=== PATIENT | male | born 1940 | race Caucasian/White ===

== ENCOUNTER → 2016-07-04 | Outpatient (CLI) | payer MEDICARE, BC | LOC: MW.CHORTHO 08:00 | PROVIDERS: ATTEND Orthopaedic Surgery | DX: M17.12 Unilateral primary osteoarthritis, left knee (principal); M25.562 Pain in left knee | CPT/HCPCS: 20610; G0463; J1040 ==

== ENCOUNTER → 2016-08-13 | Outpatient (CLI) | payer MEDICARE, BC | LOC: MW.LAB 10:43 | PROVIDERS: ATTEND Internal Medicine | DX: N18.3 Chronic kidney disease, stage 3 (moderate) (principal); N28.1 Cyst of kidney, acquired; I70.1 Atherosclerosis of renal artery; I87.2 Venous insufficiency (chronic) (peripheral) | CPT/HCPCS: 36415; 82565; 84520; 92504; G0463 ==

== ENCOUNTER 2018-05-31 09:29 | Inpatient (IN) | payer MEDICARE, BC, OTHER ==
[2018-05-31] MEDS ORDERED: Sodium Chloride 0.9% 1,000 ML IV ONE (09:40)
[2018-05-31] MEDS ORDERED: Sodium Chloride 0.9% 2.5 ML Syringe FLUSH PRN (09:40)
[2018-05-31] MEDS ORDERED: Sodium Chloride 0.9% 10 ML Syringe FLUSH PRN (09:40)
--- NOTE | 2018-05-31 09:40 | EDM.PDOC ---
ED HPI GENERAL MEDICAL PROBLEM - General Chief Complaint: Abdominal Pain Stated Complaint: ABDOMINAL PAIN Time Seen by Provider: 05/31/18 09:40 Source of Information: Reports: Patient History Limitations: Reports: No Limitations - History of Present Illness INITIAL COMMENTS - FREE TEXT/NARRATIVE: History of present illness: Patient has had one week of left lower abdominal pain. He denies any fevers, vomiting but is nauseated and having diarrhea. He states he had similar pain in the past on the opposite side and was diagnosed with a kidney stone. Review of systems: As per history of present illness and below otherwise all systems reviewed and negative. Past medical history: As per history of present illness and as reviewed below otherwise noncontributory. Surgical history: As per history of present illness and as reviewed below otherwise noncontributory. Social history: No reported history of drug or alcohol abuse. Family history: As per history of present illness and as reviewed below otherwise noncontributory. Physical exam: General: Well developed, well nourished in NAD HEENT: Atraumatic, normocephalic, pupils reactive, negative for conjunctival pallor or scleral icterus, mucous membranes moist, throat clear, neck supple, nontender, trachea midline. Lungs: Clear to auscultation, breath sounds equal bilaterally, chest nontender. Heart: S1S2, regular, negative for clicks, rubs, or JVD. Abdomen: NABS, Soft, nondistended, tender left lower quadrant without rebound or guarding. Negative for masses or hepatosplenomegaly. Negative for costovertebral tenderness. Pelvis: Stable nontender. Genitourinary: Deferred. Rectal: Deferred. Extremities: Atraumatic, negative for cords or calf pain. Neurovascular unremarkable. Neuro: Awake, alert, oriented. Cranial nerves II through XII unremarkable. Cerebellum unremarkable. Motor and sensory unremarkable throughout. Exam nonfocal. Skin:warm and dry Diagnostics: CBC, chemistry, lipase, UA, and pelvis CT without contrast Therapeutics: IV hydration, Dilaudid, Zofran, Flagyl, aztreonam ED Course: Consulted Dr. Noel patient has diagnosis of diverticulitis without perforation or abscess with a high white count she recommend putting him into hospital to the hospitalist for IV antibiotics Impression: Diverticulitis, ureterolithiasis Prescriptions: Plan: Admit for IV antibiotics and pain control Definitive disposition and diagnosis as appropriate pending reevaluation and review of above. Left Lower Abdominal Pain Score (Numeric/FACES): 5 - Related Data Allergies Allergy/AdvReac Type Severity Reaction Status Date / Time Penicillins Allergy Unknown Cannot Verified 05/31/18 09:41 Remember amoxicillin Allergy Cannot Verified 05/31/18 09:41 Remember ciprofloxacin Allergy Cannot Verified 05/31/18 09:41 Remember clarithromycin Allergy Cannot Verified 05/31/18 09:41 Remember codeine Allergy Stomach Verified 05/31/18 09:41 Upset Home Meds: Home Meds Carvedilol [Coreg] 6.25 mg PO BID 12/19/13 [History] Diltiazem HCl [Diltiazem 24Hr ER] 180 mg PO DAILY 12/19/13 [History] Lisinopril [Prinivil] 10 mg PO DAILY 12/19/13 [History] atorvaSTATin [Lipitor] 20 mg PO BEDTIME 12/19/13 [History] Albuterol [Ventolin HFA] 2 puff INH Q4H PRN 05/31/18 [History] Cholecalciferol (Vitamin D3) [Vitamin D3] 1 cap PO DAILY 05/31/18 [History] Fluticasone/Salmeterol [Advair 250-50 Diskus] 1 puff INH BID 05/31/18 [History] Saw/Vit E/Sod Mechelle/Lyc/Beta/Pyg [Prostate Health Caplet] 2 tab PO DAILY 05/31/18 [History] Sodium Bicarbonate 650 mg PO DAILY 05/31/18 [History] hydroCHLOROthiazide [Hydrochlorothiazide] 25 mg PO DAILY 05/31/18 [History] ED ROS GENERAL - Review of Systems Review Of Systems: ROS reveals no pertinent complaints other than HPI. ED EXAM, GI/ABD - Physical Exam Exam: See Below (See history of present illness) Course - Vital Signs Last Recorded V/S: Last Vital Signs Temp 97.8 F 05/31/18 09:38 Pulse 70 05/31/18 12:08 Resp 18 05/31/18 12:08 BP 179/74 H 05/31/18 12:08 Pulse Ox 93 L 05/31/18 12:08 - Orders/Labs/Meds Orders: Active Orders 24 hr Category Date Time Status Patient Status [ADT] Stat ADT 05/31/18 12:19 Ordered UA W/MICROSCOPIC [URIN] Stat Lab 05/31/18 09:45 Ordered Aztreonam [Azactam] 1 gm Med 05/31/18 12:21 Ordered Sodium Chloride 0.9% [Normal Saline] 50 ml IV ONETIME Sodium Chloride 0.9% [Saline Flush] Med 05/31/18 09:40 Active 10 ml FLUSH ASDIRECTED PRN Sodium Chloride 0.9% [Saline Flush] Med 05/31/18 09:40 Active 2.5 ml FLUSH ASDIRECTED PRN metroNIDAZOLE/Normal Saline [Flagyl 500 MG in NS 100 ML Med 05/31/18 12:13 Active ] 500 mg Premix Bag 1 bag IV ONETIME Saline Lock Insert [OM.PC] Stat Oth 05/31/18 09:40 Ordered Medication Orders Metronidazole 500 mg/ Premix 100 mls @ 100 mls/hr IV ONETIME ONE Stop: 05/31/18 13:12 Aztreonam 1 gm/ Sodium (Chloride) 50 mls @ 100 mls/hr IV ONETIME ONE Stop: 05/31/18 12:50 Sodium Chloride (Saline Flush) 10 ml FLUSH ASDIRECTED PRN PRN Reason: Keep Vein Open Last Admin: 05/31/18 10:07 Dose: 10 ml Sodium Chloride (Saline Flush) 2.5 ml FLUSH ASDIRECTED PRN PRN Reason: Keep Vein Open Last Admin: 05/31/18 10:07 Dose: 2.5 ml Labs: Laboratory Tests 05/31/18 05/31/18 Range/Units 09:59 09:59 WBC 14.99 H (4.0-11.0) K/uL RBC 4.33 L (4.50-5.90) M/uL Hgb 13.7 (13.0-17.0) g/dL Hct 40.9 (38.0-50.0) % MCV 94.5 (80.0-98.0) fL MCH 31.6 (27.0-32.0) pg MCHC 33.5 (31.0-37.0) g/dL RDW Std Deviation 48.4 (28.0-62.0) fl RDW Coeff of Libby 14 (11.0-15.0) % Plt Count 282 (150-400) K/uL MPV 10.70 (7.40-12.00) fL Neut % (Auto) 86.0 H (48.0-80.0) % Lymph % (Auto) 4.2 L (16.0-40.0) % [place] % (Auto) 9.4 (0.0-15.0) % Eos % (Auto) 0.2 (0.0-7.0) % Baso % (Auto) 0.2 (0.0-1.5) % Neut # (Auto) 12.9 H (1.4-5.7) K/uL Lymph # (Auto) 0.6 (0.6-2.4) K/uL [place] # (Auto) 1.4 H (0.0-0.8) K/uL Eos # (Auto) 0.0 (0.0-0.7) K/uL Baso # (Auto) 0.0 (0.0-0.1) K/uL Nucleated RBC % 0.0 /100WBC Nucleated RBCs # 0 K/uL Sodium 141 (136-148) mmol/L Potassium 4.1 (3.5-5.1) mmol/L Chloride 108 H (98-107) mmol/L Carbon Dioxide 22.0 (21.0-32.0) mmol/L BUN 40 H (7.0-18.0) mg/dL Creatinine 2.6 H (0.8-1.3) mg/dL Est Cr Clr Drug Dosing 24.13 mL/min Estimated GFR (MDRD) 23.9 ml/min Glucose 146 H (74-106) mg/dL Calcium 9.8 (8.5-10.1) mg/dL Total Bilirubin 0.6 (0.2-1.0) mg/dL AST 17 (15-37) IU/L ALT 23 (14-63) IU/L Alkaline Phosphatase 90 (46-116) U/L Total Protein 7.9 (6.4-8.2) g/dL Albumin 4.0 (3.4-5.0) g/dL Globulin 3.9 (2.6-4.0) g/dL Albumin/Globulin Ratio 1.0 (0.9-1.6) Lipase 322 (73-393) U/L Meds: Medications Generic Name Dose Route Start Last Admin Trade Name Freq PRN Reason Stop Dose Admin Metronidazole 500 mg/ Premix 100 mls @ 100 mls/hr 05/31/18 12:13 IV 05/31/18 13:12 ONETIME ONE Aztreonam 1 gm/ Sodium 50 mls @ 100 mls/hr 05/31/18 12:21 Chloride IV 05/31/18 12:50 ONETIME ONE Sodium Chloride 10 ml 05/31/18 09:40 05/31/18 10:07 Saline Flush FLUSH 10 ml ASDIRECTED PRN Administration Keep Vein Open Sodium Chloride 2.5 ml 05/31/18 09:40 05/31/18 10:07 Saline Flush FLUSH 2.5 ml ASDIRECTED PRN Administration Keep Vein Open Discontinued Medications Generic Name Dose Route Start Last Admin Trade Name Freq PRN Reason Stop Dose Admin Hydromorphone HCl 0.5 mg 05/31/18 09:56 05/31/18 10:06 Dilaudid IVPUSH 05/31/18 09:57 0.5 mg ONETIME ONE Administration Hydromorphone HCl 0.5 mg 05/31/18 11:53 05/31/18 12:04 Dilaudid IVPUSH 05/31/18 11:54 0.5 mg ONETIME ONE Administration Sodium Chloride 1,000 mls @ 999 mls/hr 05/31/18 09:40 05/31/18 10:02 Normal Saline IV 05/31/18 10:40 999 mls/hr .Bolus ONE Administration Ondansetron HCl 4 mg 05/31/18 09:56 05/31/18 10:07 Zofran IVPUSH 05/31/18 09:57 4 mg ONETIME ONE Administration Departure - Departure Time of Disposition: 12:24 Disposition: Admitted As Inpatient 64 Condition: Good Clinical Impression: Diverticulitis, Ureterolithiasis - Discharge Information *PRESCRIPTION DRUG MONITORING PROGRAM REVIEWED*: No *COPY OF PRESCRIPTION DRUG MONITORING REPORT IN PATIENT ALEX: No Referrals: Tomy Huggins MD [Primary Care Provider] - Forms: ED Department Discharge - My Orders Last 24 Hours: My Active Orders 05/31/18 09:40 Sodium Chloride 0.9% [Saline Flush] 10 ml FLUSH ASDIRECTED PRN Sodium Chloride 0.9% [Saline Flush] 2.5 ml FLUSH ASDIRECTED PRN Saline Lock Insert [OM.PC] Stat 05/31/18 09:45 UA W/MICROSCOPIC [URIN] Stat 05/31/18 12:13 metroNIDAZOLE/Normal Saline [Flagyl 500 MG in NS 100 ML] 500 mg Premix Bag 1 bag IV ONETIME 05/31/18 12:19 Patient Status [ADT] Stat 05/31/18 12:21 Aztreonam [Azactam] 1 gm Sodium Chloride 0.9% [Normal Saline] 50 ml IV ONETIME - Assessment/Plan Last 24 Hours: My Active Orders 05/31/18 09:40 Sodium Chloride 0.9% [Saline Flush] 10 ml FLUSH ASDIRECTED PRN Sodium Chloride 0.9% [Saline Flush] 2.5 ml FLUSH ASDIRECTED PRN Saline Lock Insert [OM.PC] Stat 05/31/18 09:45 UA W/MICROSCOPIC [URIN] Stat 05/31/18 12:13 metroNIDAZOLE/Normal Saline [Flagyl 500 MG in NS 100 ML] 500 mg Premix Bag 1 bag IV ONETIME 05/31/18 12:19 Patient Status [ADT] Stat 05/31/18 12:21 Aztreonam [Azactam] 1 gm Sodium Chloride 0.9% [Normal Saline] 50 ml IV ONETIME
[2018-05-31] MEDS ORDERED: HYDROmorphone 1 MG/ML Syringe IVPUSH ONE ×2 (09:56→11:53)
[2018-05-31] MEDS ORDERED: Ondansetron 4 MG/2 ML SDV IVPUSH ONE (09:56)
--- NOTE | 2018-05-31 12:10 | CT ---
INDICATION: Left lower quadrant pain, history of renal stones TECHNIQUE: CT abdomen and pelvis without contrast. COMPARISON: CT abdomen and pelvis 10/17/2017, 10/25/2016 and 07/11/2014 FINDINGS: Emphysematous changes are present within both lungs. There is atelectasis or scarring within the right middle lobe and lingula. Evaluation of the abdominal viscera is limited due to lack of IV contrast. The gallbladder is surgically absent. Punctate calcifications are seen within the spleen, likely sequelae of prior granulomatous disease. The unopacified liver is unremarkable. Negative for intrahepatic or extrahepatic biliary dilatation. The pancreas is unremarkable. There are stable bilateral adrenal nodules. The largest of which is on the left and measures 2.5 cm There are multiple bilateral hypo and hyper attenuating renal lesions, some of which measure simple cysts, others are indeterminate. The majority of these appear similar to prior exam, however there is hyper attenuating lesion off the mid pole of the right kidney which measures 1.6 cm, previously 1.1 cm in October 2016. This is indeterminate. There is mild left hydronephrosis and hydroureter. There is a obstructing stone just proximal to the left ureterovesical junction measuring 0.4 cm. No additional punctate calcifications are seen within either kidney. A 0.5 cm stone is seen within the posterior aspect of the bladder. The prostate is enlarged measuring 5.0 x 7.2 cm. Calcifications are seen within the prostate. There are multiple colonic diverticuli within the rectosigmoid colon. There is mild surrounding inflammatory changes suggesting acute diverticulitis. There are a few mildly prominent fluid-filled loops of small bowel without a transition point, which may represent an ileus. Negative for intraperitoneal free air or fluid. No drainable fluid collection is visualized. There is a small fat containing periumbilical hernia. Small fat containing inguinal hernias are present. There are multilevel degenerative changes of the spine, worse at the L3-L4 and L4-L5 levels. IMPRESSION: 1. Mild left hydronephrosis and hydroureter with a 0.4 cm obstructing stone in the distal ureter just proximal to the ureterovesical junction. Additional 0.5 cm stone within the bladder. 2. Acute colonic diverticulitis of the sigmoid colon without a drainable fluid collection. If not recently performed recommend follow-up colonoscopy after treatment to ensure no underlying malignancy is present. 3. Mildly prominent fluid-filled loops of small bowel likely represent an ileus. Otherwise no evidence of bowel obstruction. 4. Multiple bilateral renal lesions are likely simple and complicated cysts, however there is a hyper dense lesion within the midpole of the right kidney, measuring 1.6 cm which has increased in size since October 2016 when it previously measured 1.1 cm. This is indeterminate. 5. Emphysema within the bilateral lung bases. Dictated by Candelaria Brian MD @ 05/31/2018 12:08:47 PM Please note that all CT scans at this facility use dose modulation, iterative reconstruction, and/or weight-based dosing when appropriate to reduce radiation dose to as low as reasonably achievable. Dictated by: Candelaria Brian MD @ 05/31/2018 12:09:27 (Electronically Signed)
[2018-05-31] MEDS ORDERED: metroNIDAZOLE/Normal Saline 500 MG in Premix Bag 1 BAG IV ONE (12:13)
[2018-05-31] MEDS ORDERED: Albuterol 8 GM Inhaler INH PRN (13:36)
[2018-05-31] MEDS ORDERED: Morphine 2 MG/ML Syringe IVPUSH PRN (13:38)
--- NOTE | 2018-05-31 13:42 | PCM.HP ---
H&P History of Present Illness - General Date of Service: 05/31/18 Admit Problem/Dx: Admission Diagnosis/Problem Admission Diagnosis/Problem Diverticulitis Source of Information: Patient History Limitations: Reports: No Limitations - History of Present Illness Initial Comments - Free Text/Narative: The patient is an 78-year-old gentleman who had presented to the emergency department out of concern for left-sided abdominal pain. The patient says that he has been having pain in his left lower abdomen for approximately 6 days. The patient says that the pain was similar to a kidney stone that he had on the right side and he thought that this was in fact another kidney stone. The pain did not go away and in fact got worse resulting in his presentation. 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 The patient has denied any fever but, has had chills. The patient also has had no specific aggravating or relieving factor and he has described the pain as cramping, sharp and stabbing and comes and goes. Onset of Symptoms: Reports: Gradual Duration of Symptoms: Reports: Day(s): Location: Reports: Abdomen Quality: Reports: Sharp, Stabbing, Throbbing Severity: Moderate Improves with: Reports: Medication, Rest Worsens with: Reports: Eating, Movement Associated Symptoms: Reports: No Other Symptoms Left Lower Abdominal Pain Score (Numeric/FACES): 5 - Related Data Allergies/Adverse Reactions: Allergies Allergy/AdvReac Type Severity Reaction Status Date / Time Penicillins Allergy Unknown Cannot Verified 05/31/18 09:41 Remember amoxicillin Allergy Cannot Verified 05/31/18 09:41 Remember ciprofloxacin Allergy Cannot Verified 05/31/18 09:41 Remember clarithromycin Allergy Cannot Verified 05/31/18 09:41 Remember codeine Allergy Stomach Verified 05/31/18 09:41 Upset Home Medications: Home Meds Carvedilol [Coreg] 6.25 mg PO BID 12/19/13 [History] Diltiazem HCl [Diltiazem 24Hr ER] 180 mg PO DAILY 12/19/13 [History] Lisinopril [Prinivil] 10 mg PO DAILY 12/19/13 [History] atorvaSTATin [Lipitor] 20 mg PO BEDTIME 12/19/13 [History] Albuterol [Ventolin HFA] 2 puff INH Q4H PRN 05/31/18 [History] Cholecalciferol (Vitamin D3) [Vitamin D3] 1 cap PO DAILY 05/31/18 [History] Fluticasone/Salmeterol [Advair 250-50 Diskus] 1 puff INH BID 05/31/18 [History] Methylsulfonylmethane [MSM] 1,200 mg PO DAILY 05/31/18 [History] Saw/Vit E/Sod Mechelle/Lyc/Beta/Pyg [Prostate Health Caplet] 2 tab PO DAILY 05/31/18 [History] Sodium Bicarbonate 650 mg PO BID 05/31/18 [History] hydroCHLOROthiazide [Hydrochlorothiazide] 25 mg PO DAILY 05/31/18 [History] Past Medical History HEENT History: Reports: None Cardiovascular History: Reports: Afib, High Cholesterol, Hypertension Respiratory History: Reports: COPD Gastrointestinal History: Reports: Chronic Diarrhea, Other (See Below) ( Diverticulitis) Genitourinary History: Reports: Renal Calculus, Renal Disease Musculoskeletal History: Reports: None Neurological History: Reports: Headaches, Chronic Psychiatric History: Reports: None Endocrine/Metabolic History: Reports: None Hematologic History: Reports: None Immunologic History: Reports: None Oncologic (Cancer) History: Reports: None - Infectious Disease History Infectious Disease History: Reports: Chicken Pox, Measles, Mumps - Past Surgical History GI Surgical History: Reports: Appendectomy, Cholecystectomy Social & Family History - Family History Family Medical History: Noncontributory - Tobacco Use Smoking Status *Q: Former Smoker Used Tobacco, but Quit: Yes Month/Year Tobacco Last Used: 10 years - Recreational Drug Use Recreational Drug Use: No - Living Situation & Occupation Living situation: Reports: , with Spouse Occupation: Retired H&P Review of Systems - Review of Systems: Review Of Systems: See Below General: Reports: Chills, Malaise, Weakness HEENT: Reports: Ear Pain, Headaches Pulmonary: Reports: No Symptoms Cardiovascular: Reports: No Symptoms Gastrointestinal: Reports: Abdominal Pain, Diarrhea (Chronic) Genitourinary: Reports: No Symptoms Musculoskeletal: Reports: No Symptoms Skin: Reports: No Symptoms Psychiatric: Reports: No Symptoms Neurological: Reports: No Symptoms Hematologic/Lymphatic: Reports: No Symptoms Immunologic: Reports: No Symptoms Exam - Exam Exam: See Below - Vital Signs Vital Signs: Last Vital Signs Temp 36.6 C 05/31/18 09:38 Pulse 70 05/31/18 12:08 Resp 18 05/31/18 12:08 BP 179/74 H 05/31/18 12:08 Pulse Ox 93 L 05/31/18 12:08 Weight: 110.4 kg - Exam Quality Assessment: No: Supplemental Oxygen General: Alert, Oriented, Cooperative, Mild Distress HEENT: Conjunctiva Clear, EACs Clear, Mucosa Moist & Farrell, Nares Patent, Pupils Equal, Pupils Reactive. No: Hearing Intact Neck: Supple, Trachea Midline Lungs: Clear to Auscultation, Normal Respiratory Effort Cardiovascular: Regular Rate, Regular Rhythm GI/Abdominal Exam: Normal Bowel Sounds, Soft, No Distention, Tender (Left lower quadrant). No: Guarding, Rigid, Rebound (Male) Exam: Deferred Rectal (Males) Exam: Deferred Back Exam: Normal Inspection, Full Range of Motion Extremities: Normal Inspection, No Pedal Edema Skin: Warm, Dry, Intact Neurological: Cranial Nerves Intact Neuro Extensive - Mental Status: Alert, Oriented x3, Normal Mood/Affect - Patient Data Lab Results Last 24 hrs: Laboratory Results - last 24 hr 05/31/18 05/31/18 Range/Units 09:59 09:59 WBC 14.99 H (4.0-11.0) K/uL RBC 4.33 L (4.50-5.90) M/uL Hgb 13.7 (13.0-17.0) g/dL Hct 40.9 (38.0-50.0) % MCV 94.5 (80.0-98.0) fL MCH 31.6 (27.0-32.0) pg MCHC 33.5 (31.0-37.0) g/dL RDW Std Deviation 48.4 (28.0-62.0) fl RDW Coeff of Libby 14 (11.0-15.0) % Plt Count 282 (150-400) K/uL MPV 10.70 (7.40-12.00) fL Neut % (Auto) 86.0 H (48.0-80.0) % Lymph % (Auto) 4.2 L (16.0-40.0) % [place] % (Auto) 9.4 (0.0-15.0) % Eos % (Auto) 0.2 (0.0-7.0) % Baso % (Auto) 0.2 (0.0-1.5) % Neut # (Auto) 12.9 H (1.4-5.7) K/uL Lymph # (Auto) 0.6 (0.6-2.4) K/uL [place] # (Auto) 1.4 H (0.0-0.8) K/uL Eos # (Auto) 0.0 (0.0-0.7) K/uL Baso # (Auto) 0.0 (0.0-0.1) K/uL Nucleated RBC % 0.0 /100WBC Nucleated RBCs # 0 K/uL Sodium 141 (136-148) mmol/L Potassium 4.1 (3.5-5.1) mmol/L Chloride 108 H (98-107) mmol/L Carbon Dioxide 22.0 (21.0-32.0) mmol/L BUN 40 H (7.0-18.0) mg/dL Creatinine 2.6 H (0.8-1.3) mg/dL Est Cr Clr Drug Dosing 24.13 mL/min Estimated GFR (MDRD) 23.9 ml/min Glucose 146 H (74-106) mg/dL Calcium 9.8 (8.5-10.1) mg/dL Total Bilirubin 0.6 (0.2-1.0) mg/dL AST 17 (15-37) IU/L ALT 23 (14-63) IU/L Alkaline Phosphatase 90 (46-116) U/L Total Protein 7.9 (6.4-8.2) g/dL Albumin 4.0 (3.4-5.0) g/dL Globulin 3.9 (2.6-4.0) g/dL Albumin/Globulin Ratio 1.0 (0.9-1.6) Lipase 322 (73-393) U/L Result Diagrams: 05/31/18 09:59 05/31/18 09:59 - Problem List (1) Diverticulitis SNOMED Code(s): 045906753 ICD Code: K57.92 - DVTRCLI OF INTEST, PART UNSP, W/O PERF OR ABSCESS W/O BLEED Status: Acute Priority: High Current Visit: Yes (2) Abdominal pain SNOMED Code(s): 30125913 ICD Code: R10.9 - UNSPECIFIED ABDOMINAL PAIN Status: Acute Priority: High Current Visit: Yes (3) Renal impairment SNOMED Code(s): 026935949 ICD Code: N28.9 - DISORDER OF KIDNEY AND URETER, UNSPECIFIED Status: Chronic Priority: High Current Visit: Yes (4) COPD, Moderate chronic obstructive pulmonary disease SNOMED Code(s): 722344869 ICD Code: J44.9 - CHRONIC OBSTRUCTIVE PULMONARY DISEASE, UNSPECIFIED Status : Chronic Priority: High Current Visit: Yes (5) Hypertensive heart disease SNOMED Code(s): 09253398 ICD Code: I11.9 - HYPERTENSIVE HEART DISEASE WITHOUT HEART FAILURE Status: Chronic Priority: Medium Current Visit: Yes Problem List Initiated/Reviewed/Updated: Yes Orders Last 24hrs: Active Orders 24 hr Category Date Time Status Patient Status [ADT] Stat ADT 05/31/18 12:19 Active UA W/MICROSCOPIC [URIN] Stat Lab 05/31/18 09:45 Ordered Albuterol [Ventolin HFA] Med 05/31/18 13:36 Ordered 2 puff INH Q4H PRN Carvedilol [Coreg] Med 05/31/18 21:00 Ordered 6.25 mg PO BID Diltiazem HCl [Diltiazem 24Hr ER] Med 06/01/18 09:00 Ordered 180 mg PO DAILY Fluticasone/Salmeterol [Advair Diskus 250-50] Med 05/31/18 21:00 Ordered 1 puff INH BID Lisinopril [Prinivil] Med 06/01/18 09:00 Ordered 10 mg PO DAILY Sodium Chloride 0.9% [Saline Flush] Med 05/31/18 09:40 Active 10 ml FLUSH ASDIRECTED PRN Sodium Chloride 0.9% [Saline Flush] Med 05/31/18 09:40 Active 2.5 ml FLUSH ASDIRECTED PRN atorvaSTATin [Lipitor] Med 05/31/18 21:00 Ordered 20 mg PO BEDTIME hydroCHLOROthiazide Med 06/01/18 09:00 Ordered 25 mg PO DAILY Saline Lock Insert [OM.PC] Stat Oth 05/31/18 09:40 Ordered Medication Orders Albuterol (Ventolin Hfa) 8 gm INH Q4H PRN PRN Reason: sob Atorvastatin Calcium (Lipitor) 20 mg PO BEDTIME GABI Carvedilol (Coreg) 6.25 mg PO BID GABI Diltiazem HCl (Cardizem Cd) 180 mg PO DAILY GABI Hydrochlorothiazide (Hydrochlorothiazide) 25 mg PO DAILY GABI Lisinopril (Prinivil) 10 mg PO DAILY GABI Fluticasone/Salmeterol (Advair Diskus 250-50) 1 puff INH BID GABI Sodium Chloride (Saline Flush) 10 ml FLUSH ASDIRECTED PRN PRN Reason: Keep Vein Open Last Admin: 05/31/18 10:07 Dose: 10 ml Sodium Chloride (Saline Flush) 2.5 ml FLUSH ASDIRECTED PRN PRN Reason: Keep Vein Open Last Admin: 05/31/18 10:07 Dose: 2.5 ml Assessment/Plan Comment:: The patient is an 78-year-old gentleman who has been admitted as an inpatient due to diverticulitis. CT scan of the abdomen did show acute colonic diverticulitis as the sigmoid colon without a drainable fluid collection. The patient also has a history of emphysema and he'll be kept on oxygen if necessary to keep his saturations above 90%. The patient will be kept nothing by mouth for now. He'll also be kept on IV fluids at 100 mL per hour of normal saline the patient will have his pain controlled with the use of Dilaudid. I have ordered repeat laboratory studies for the morning. I've advised patient that if everything improves as cleared he would likely be appropriate for discharge in 1-2 days. Also, surgeon consulting senior practice director Dr. Amanda Galicia had been contacted with regards to this patient. She will see patient as necessary. The patient was also noted on CT scan to have a possible ileus and as a result of this is been recommended to ambulate.
[2018-05-31] MEDS ORDERED: Enoxaparin 30 MG/0.3 ML Syringe SUBCUT SCH (13:45)
[2018-05-31] MEDS: Sodium Chloride 0.9% 1,000 ML IV SCH (14:15)
[2018-05-31] MEDS: HYDROmorphone 1 MG/ML Syringe IVPUSH PRN ×2 (14:30→23:28)
[2018-05-31] MEDS: atorvaSTATin 20 MG Tab PO SCH (20:17)
[2018-05-31] MEDS: Carvedilol 6.25 MG Tab PO SCH (20:17)
[2018-05-31] MEDS: oxyCODONE 5 MG Tab PO PRN (20:19)
[2018-05-31] MEDS: Fluticasone/Salmeterol 250-50 MCG Inhalation Powder 14/Diskus INH SCH (22:25)
[2018-05-31] MEDS: metroNIDAZOLE/Normal Saline 500 MG in Premix Bag 1 BAG IV SCH (22:26)
[2018-06-01] MEDS: Sodium Chloride 0.9% 1,000 ML IV SCH ×3 (01:30→21:39)
[2018-06-01] MEDS: metroNIDAZOLE/Normal Saline 500 MG in Premix Bag 1 BAG IV SCH (04:57)
[2018-06-01] MEDS: HYDROmorphone 1 MG/ML Syringe IVPUSH PRN ×3 (07:19→22:24)
[2018-06-01] MEDS: Carvedilol 6.25 MG Tab PO SCH ×2 (08:28→21:16)
[2018-06-01] MEDS: Diltiazem 180 MG Cap.CD PO SCH (08:28)
[2018-06-01] MEDS ORDERED: Lisinopril 10 MG Tab PO SCH (09:00)
[2018-06-01] MEDS ORDERED: Hydrochlorothiazide 25 MG Tab PO SCH (09:00)
[2018-06-01] MEDS ORDERED: Ertapenem 1 GM in Sodium Chloride 0.9% 50 ML IV SCH (09:45)
[2018-06-01] MEDS: Tamsulosin 0.4 MG Cap.ER PO SCH (09:49)
[2018-06-01] MEDS: Fluticasone/Salmeterol 250-50 MCG Inhalation Powder 14/Diskus INH SCH ×2 (09:58→21:12)
[2018-06-01] MEDS: oxyCODONE 5 MG Tab PO PRN (13:16)
[2018-06-01] MEDS: Heparin Sodium 5,000 Units/ML Vial SUBCUT SCH ×2 (13:18→21:16)
--- NOTE | 2018-06-01 13:29 | PCM.PN ---
- General Info Date of Service: 06/01/18 Admission Dx/Problem (Free Text): Admission Diagnosis/Problem Admission Diagnosis/Problem Diverticulitis, renal calculus Subjective Update: Continues to have pain intermittently to LLQ. Not passing gas and No BMs. No chest pain. SOB is at baseline with hx COPD Functional Status: Reports: Pain Controlled, Ambulating, Urinating. Denies: Tolerating Diet - Review of Systems General: Reports: No Symptoms. Denies: Weakness, Fatigue HEENT: Denies: Headaches, Sore Throat Pulmonary: Reports: Shortness of Breath (at baseline.). Denies: Cough, Sputum Cardiovascular: Reports: No Symptoms. Denies: Chest Pain, Edema Gastrointestinal: Reports: Abdominal Pain (LLQ intermittently, sharp shooting). Denies: Diarrhea, Flatus, Nausea, Vomiting Genitourinary: Reports: No Symptoms. Denies: Dysuria, Frequency, Burning, Flank Pain Musculoskeletal: Reports: No Symptoms Skin: Reports: No Symptoms Neurological: Reports: No Symptoms Psychiatric: Reports: No Symptoms - Patient Data Vitals - Most Recent: Last Vital Signs Temp 98.9 F 06/01/18 11:58 Pulse 67 06/01/18 11:58 Resp 16 06/01/18 11:58 BP 104/57 L 06/01/18 11:58 Pulse Ox 92 L 06/01/18 11:58 Weight - Most Recent: 110.4 kg I&O - Last 24 Hours: Intake & Output 05/31/18 06/01/18 06/01/18 22:59 06:59 14:59 Intake Total 0 1331 Output Total 0 50 Balance 0 1281 Lab Results Last 24 Hours: Laboratory Results - last 24 hr 05/31/18 06/01/18 06/01/18 Range/Units 19:05 06:06 06:06 WBC 12.64 H (4.0-11.0) K/uL RBC 3.74 L (4.50-5.90) M/uL Hgb 12.0 L (13.0-17.0) g/dL Hct 37.0 L (38.0-50.0) % MCV 98.9 H (80.0-98.0) fL MCH 32.1 H (27.0-32.0) pg MCHC 32.4 (31.0-37.0) g/dL RDW Std Deviation 52.4 (28.0-62.0) fl RDW Coeff of Libby 15 (11.0-15.0) % Plt Count 230 (150-400) K/uL MPV 10.80 (7.40-12.00) fL Add Manual Diff YES Neutrophils % (Manual) 77 (48.0-80.0) % Band Neutrophils % 1 % Lymphocytes % (Manual) 4 L (16.0-40.0) % Monocytes % (Manual) 16 H (0.0-15.0) % Eosinophils % (Manual) 2 (0.0-7.0) % Nucleated RBC % 0.0 /100WBC Absolute Seg Neuts 9.7 H (1.4-5.7) Band Neutrophils # 0.1 Lymphocytes # (Manual) 0.5 L (0.6-2.4) Monocytes # (Manual) 2.0 H (0.0-0.8) Eosinophils # (Manual) 0.3 (0.0-0.7) Nucleated RBCs # [employer] INFORMATION [employer]ER Sodium 142 (136-148) mmol/L Potassium 4.3 (3.5-5.1) mmol/L Chloride 109 H (98-107) mmol/L Carbon Dioxide 22.8 (21.0-32.0) mmol/L BUN 43 H (7.0-18.0) mg/dL Creatinine 3.4 H (0.8-1.3) mg/dL Est Cr Clr Drug Dosing 18.46 mL/min Estimated GFR (MDRD) 17.5 ml/min Glucose 130 H (74-106) mg/dL Calcium 8.5 (8.5-10.1) mg/dL Total Bilirubin 0.4 (0.2-1.0) mg/dL AST 15 (15-37) IU/L ALT 19 (14-63) IU/L Alkaline Phosphatase 73 (46-116) U/L Total Protein 6.6 (6.4-8.2) g/dL Albumin 3.0 L (3.4-5.0) g/dL Globulin 3.6 (2.6-4.0) g/dL Albumin/Globulin Ratio 0.8 L (0.9-1.6) Urine Color YELLOW Urine Appearance HAZY Urine pH 5.5 (5.0-8.0) Ur Specific [place] 1.025 (1.001-1.035) Urine Protein TRACE H (NEGATIVE) mg/dL Urine Glucose (UA) NEGATIVE (NEGATIVE) mg/dL Urine Ketones NEGATIVE (NEGATIVE) mg/dL Urine Occult Blood LARGE H (NEGATIVE) Urine Nitrite NEGATIVE (NEGATIVE) Urine Bilirubin NEGATIVE (NEGATIVE) Urine Urobilinogen 0.2 (<2.0) EU/dL Ur Leukocyte Esterase NEGATIVE (NEGATIVE) Urine RBC 45-50 (0-2/HPF) Urine WBC 1-3 (0-5/HPF) Ur Epithelial Cells FEW (NONE-FEW) Urine Bacteria FEW (NEGATIVE) Med Orders - Current: Current Medications Acetaminophen (Tylenol) 650 mg PO Q4H PRN PRN Reason: Pain (Mild 1-3)/fever Albuterol (Ventolin Hfa) 8 gm INH Q4H PRN PRN Reason: sob Albuterol/Ipratropium (Duoneb 3.0-0.5 Mg/3 Ml) 3 ml NEB Q4HRRT [facility] Atorvastatin Calcium (Lipitor) 20 mg PO BEDTIME [facility] Last Admin: 05/31/18 20:17 Dose: 20 mg Carvedilol (Coreg) 6.25 mg PO BID [facility] Last Admin: 06/01/18 08:28 Dose: 6.25 mg Diltiazem HCl (Cardizem Cd) 180 mg PO DAILY [facility] Last Admin: 06/01/18 08:28 Dose: 180 mg Heparin Sodium (Porcine) (Heparin Sodium) 5,000 units SUBCUT Q8H [facility] Hydromorphone HCl (Dilaudid) 1 mg IVPUSH Q3H PRN PRN Reason: Pain (severe 7-10) Last Admin: 06/01/18 10:42 Dose: 1 mg Ertapenem 1 gm/ Sodium (Chloride) 50 mls @ 100 mls/hr IV Q24H [facility] Sodium Chloride (Normal Saline) 1,000 mls @ 125 mls/hr IV ASDIRECTED [facility] Last Admin: 06/01/18 13:09 Dose: 125 mls/hr Ondansetron HCl (Zofran Odt) 4 mg PO Q4H PRN PRN Reason: nausea, able to take PO Oxycodone HCl (Oxycodone) 5 mg PO Q4H PRN PRN Reason: Pain (moderate 4-6) Last Admin: 05/31/18 20:19 Dose: 5 mg Fluticasone/Salmeterol (Advair Diskus 250-50) 1 puff INH BID [facility] Last Admin: 06/01/18 09:58 Dose: 1 puff Sodium Chloride (Saline Flush) 10 ml FLUSH ASDIRECTED PRN PRN Reason: Keep Vein Open Last Admin: 05/31/18 10:07 Dose: 10 ml Sodium Chloride (Saline Flush) 2.5 ml FLUSH ASDIRECTED PRN PRN Reason: Keep Vein Open Last Admin: 05/31/18 10:07 Dose: 2.5 ml Tamsulosin HCl (Flomax) 0.4 mg PO PCBREAKFAST [facility] Last Admin: 06/01/18 09:49 Dose: 0.4 mg Temazepam (Restoril) 15 mg PO BEDTIME PRN PRN Reason: Sleep Discontinued Medications Enoxaparin Sodium (Lovenox) 30 mg SUBCUT Q24H [facility] Last Admin: 05/31/18 14:30 Dose: 30 mg Hydrochlorothiazide (Hydrochlorothiazide) 25 mg PO DAILY [facility] Last Admin: 06/01/18 08:28 Dose: 25 mg Hydromorphone HCl (Dilaudid) 0.5 mg IVPUSH ONETIME ONE Stop: 05/31/18 09:57 Last Admin: 05/31/18 10:06 Dose: 0.5 mg Hydromorphone HCl (Dilaudid) 0.5 mg IVPUSH ONETIME ONE Stop: 05/31/18 11:54 Last Admin: 05/31/18 12:04 Dose: 0.5 mg Sodium Chloride (Normal Saline) 1,000 mls @ 999 mls/hr IV .Bolus ONE Stop: 05/31/18 10:40 Last Admin: 05/31/18 10:02 Dose: 999 mls/hr Metronidazole 500 mg/ Premix 100 mls @ 100 mls/hr IV ONETIME ONE Stop: 05/31/18 13:12 Last Admin: 05/31/18 12:26 Dose: 100 mls/hr Aztreonam 1 gm/ Sodium (Chloride) 50 mls @ 100 mls/hr IV ONETIME ONE Stop: 05/31/18 12:50 Last Admin: 05/31/18 14:04 Dose: Not Given Sodium Chloride (Normal Saline) 1,000 mls @ 100 mls/hr IV ASDIRECTED [facility] Last Admin: 06/01/18 01:30 Dose: 100 mls/hr Aztreonam 1 gm/ Sodium (Chloride) 50 mls @ 100 mls/hr IV ONETIME ONE Stop: 05/31/18 14:29 Last Admin: 05/31/18 14:16 Dose: 100 mls/hr Aztreonam 2 gm/ Sodium (Chloride) 50 mls @ 100 mls/hr IV Q8HR [facility] Last Admin: 06/01/18 06:01 Dose: 100 mls/hr Metronidazole 500 mg/ Premix 100 mls @ 100 mls/hr IV Q6H [facility] Last Admin: 06/01/18 04:57 Dose: 100 mls/hr Aztreonam 1 gm/ Sodium (Chloride) 50 mls @ 100 mls/hr IV Q8HR [facility] Aztreonam 1 gm/ Sodium (Chloride) 50 mls @ 100 mls/hr IV Q8HR [facility] Ertapenem 1 gm/ Sodium (Chloride) 50 mls @ 100 mls/hr IV Q24H [facility] Last Admin: 06/01/18 10:21 Dose: Not Given Lisinopril (Prinivil) 10 mg PO DAILY [facility] Last Admin: 06/01/18 08:27 Dose: 10 mg Morphine Sulfate (Morphine) 2 mg IVPUSH Q2H PRN PRN Reason: Pain (severe 7-10) Stop: 06/01/18 13:40 Last Admin: 05/31/18 14:11 Dose: 2 mg Ondansetron HCl (Zofran) 4 mg IVPUSH ONETIME ONE Stop: 05/31/18 09:57 Last Admin: 05/31/18 10:07 Dose: 4 mg Tamsulosin HCl (Flomax) 0.4 mg PO PCBREAKFAST [facility] - Exam Quality Assessment: Supplemental Oxygen General: Alert, Oriented, Cooperative Neck: Supple Lungs: Normal Respiratory Effort, Wheezing (scant throughout) Cardiovascular: Regular Rate, Regular Rhythm GI/Abdominal Exam: Normal Bowel Sounds, Soft, Tender (LLQ) Back Exam: Normal Inspection Extremities: Normal Inspection, Normal Range of Motion, Non-Tender Neurological: No New Focal Deficit Psy/Mental Status: Alert, Normal Affect, Normal Mood - Problem List & Annotations (1) Abdominal pain SNOMED Code(s): 58488834 Code(s): R10.9 - UNSPECIFIED ABDOMINAL PAIN Status: Acute Priority: High Current Visit: Yes (2) Diverticulitis SNOMED Code(s): 364873350 Code(s): K57.92 - DVTRCLI OF INTEST, PART UNSP, W/O PERF OR ABSCESS W/O BLEED Status: Acute Priority: High Current Visit: Yes (3) Renal calculus or stone SNOMED Code(s): 44275325 Code(s): N20.0 - CALCULUS OF KIDNEY Status: Acute Current Visit: Yes (4) STEPHY (acute kidney injury) SNOMED Code(s): 38132453 Code(s): N17.9 - ACUTE KIDNEY FAILURE, UNSPECIFIED Status: Acute Current Visit: Yes (5) HTN (hypertension) SNOMED Code(s): 28306961 Code(s): I10 - ESSENTIAL (PRIMARY) HYPERTENSION Status: Chronic Current Visit: Yes Qualifiers: Hypertension type: essential hypertension Qualified Code(s): I10 - Essential (primary) hypertension (6) COPD, Moderate chronic obstructive pulmonary disease SNOMED Code(s): 649842858 Code(s): J44.9 - CHRONIC OBSTRUCTIVE PULMONARY DISEASE, UNSPECIFIED Status : Chronic Priority: High Current Visit: Yes (7) Afib SNOMED Code(s): 72209457 Code(s): I48.91 - UNSPECIFIED ATRIAL FIBRILLATION Status: Chronic Current Visit: Yes Qualifiers: Atrial fibrillation type: unspecified Qualified Code(s): I48.91 - Unspecified atrial fibrillation - Problem List Review Problem List Initiated/Reviewed/Updated: Yes - My Orders Last 24 Hours: My Active Orders 06/01/18 CULTURE URINE [RM] Routine 06/01/18 08:20 Bladder Scan [RC] ASDIRECTED 06/01/18 09:23 Tamsulosin [Flomax] 0.4 mg PO PCBREAKFAST 06/01/18 11:47 Strain Urine [RC] ASDIRECTED 06/01/18 12:59 Sodium Chloride 0.9% [Normal Saline] 1,000 ml IV ASDIRECTED 06/01/18 13:16 RT Aerosol Therapy [RC] ASDIRECTED 06/01/18 14:00 Albuterol/Ipratropium [DuoNeb 3.0-0.5 MG/3 ML] 3 ml NEB Q4HRRT 06/02/18 09:00 Ertapenem [INVanz] 1 gm Sodium Chloride 0.9% [Normal Saline] 50 ml IV Q24H - Plan Plan:: This 78 year old male admitted with acute sigmoid diverticulitis and renal calculus. 1. Acute diverticulitis: Leukocytosis improving. Spoke with Bianca, [facility]. Recommended treatment with Invanz 1 gm daily for diverticulitis due to allergies. Switched this, will monitor. 2. Ileus: Also noted on CT No flatus or BM, encourage ambulation. Monitor narcotic use. Monitor Potassium 3. Renal calculus: Obstructing 4 mm stone in L ureter. UA negative. UC pending. Continue Invanz above. I spoke with Dr Parra, Urologist in [place], recommended to continue Flomax, it will likely pass on its own. Strain all urine. Monitor, if he becomes hemodynamically unstable, then consider transfer. 4. STEPHY: Will hold nephrotoxic medications. Continue IVFs, Holding Lisinopril and HCTZ. 5. COPD: Stable. Continue Advair and add Duonebs for wheezing. 6. HTN: Stable. Monitor, holding Lisinopril and HCTZ due to STEPHY 7. Afib: HR stable. Continue Diltiazem. VTE prophylaxis: Heparin Dispo: 2-4 days pending improvement
[2018-06-01] MEDS: Albuterol/Ipratropium 3.0-0.5 MG/3 ML Neb Soln NEB SCH ×3 (13:31→21:12)
[2018-06-01] MEDS: atorvaSTATin 20 MG Tab PO SCH (21:16)
[2018-06-01] MEDS: Temazepam 15 MG Cap PO PRN (21:44)
[2018-06-02] MEDS: Albuterol/Ipratropium 3.0-0.5 MG/3 ML Neb Soln NEB SCH ×6 (01:48→20:59)
[2018-06-02] MEDS: Heparin Sodium 5,000 Units/ML Vial SUBCUT SCH ×3 (05:18→21:18)
[2018-06-02] MEDS: Sodium Chloride 0.9% 1,000 ML IV SCH ×3 (05:19→21:45)
--- NOTE | 2018-06-02 06:53 | CR ---
INDICATION: Possible ileus. COMPARISON: none TECHNIQUE: Two view abdomen. FINDINGS: The bowel gas pattern appears normal. There is no evidence of free intraperitoneal air or soft tissue mass effect. There are no pathologic calcifications. IMPRESSION: Negative abdomen. Dictated by Will Schmitz MD @ Jun 02 2018 6:52AM Signed by Dr. Will Schmitz @ Jun 02 2018 6:53AM
--- NOTE | 2018-06-02 07:59 | PCM.PN ---
- General Info Date of Service: 06/02/18 Admission Dx/Problem (Free Text): Admission Diagnosis/Problem Admission Diagnosis/Problem Diverticulitis, renal calculus Subjective Update: Pain is better today. More pain with urination today though. No chest pain. SOB at baseline. No other concerns. He is hungry. No BM and no flatus. Functional Status: Reports: Pain Controlled, Tolerating Diet, Ambulating - Review of Systems General: Reports: No Symptoms. Denies: Weakness, Fatigue HEENT: Reports: No Symptoms. Denies: Headaches, Sore Throat Pulmonary: Reports: Shortness of Breath (at baseline). Denies: Cough, Sputum Cardiovascular: Denies: Chest Pain, Edema Gastrointestinal: Reports: Abdominal Pain (improved). Denies: Flatus, Nausea, Vomiting Genitourinary: Reports: Burning. Denies: Pain, Retention, Flank Pain Musculoskeletal: Reports: No Symptoms Skin: Reports: No Symptoms Neurological: Reports: No Symptoms Psychiatric: Reports: No Symptoms - Patient Data Vitals - Most Recent: Last Vital Signs Temp 99.9 F 06/02/18 07:44 Pulse 80 06/02/18 00:00 Resp 12 06/02/18 07:44 BP 113/56 L 06/02/18 07:44 Pulse Ox 91 L 06/02/18 07:44 Weight - Most Recent: 110.4 kg I&O - Last 24 Hours: Intake & Output 06/01/18 06/02/18 06/02/18 22:59 06:59 14:59 Intake Total 1209 1029 Output Total 150 400 Balance 1059 629 Lab Results Last 24 Hours: Laboratory Results - last 24 hr 06/02/18 06/02/18 Range/Units 05:53 05:53 WBC 11.90 H (4.0-11.0) K/uL RBC 3.52 L (4.50-5.90) M/uL Hgb 11.0 L (13.0-17.0) g/dL Hct 35.2 L (38.0-50.0) % MCV 100.0 H (80.0-98.0) fL MCH 31.3 (27.0-32.0) pg MCHC 31.3 (31.0-37.0) g/dL RDW Std Deviation 52.7 (28.0-62.0) fl RDW Coeff of Libby 15 (11.0-15.0) % Plt Count 219 (150-400) K/uL MPV 10.70 (7.40-12.00) fL Neut % (Auto) 83.9 H (48.0-80.0) % Lymph % (Auto) 4.2 L (16.0-40.0) % Johnston % (Auto) 10.7 (0.0-15.0) % Eos % (Auto) 0.9 (0.0-7.0) % Baso % (Auto) 0.3 (0.0-1.5) % Neut # (Auto) 10.0 H (1.4-5.7) K/uL Lymph # (Auto) 0.5 L (0.6-2.4) K/uL [place] # (Auto) 1.3 H (0.0-0.8) K/uL Eos # (Auto) 0.1 (0.0-0.7) K/uL Baso # (Auto) 0.0 (0.0-0.1) K/uL Nucleated RBC % 0.0 /100WBC Nucleated RBCs # 0 K/uL Sodium 140 (136-148) mmol/L Potassium 4.5 (3.5-5.1) mmol/L Chloride 111 H (98-107) mmol/L Carbon Dioxide 16.3 L (21.0-32.0) mmol/L BUN 49 H (7.0-18.0) mg/dL Creatinine 3.6 H (0.8-1.3) mg/dL Est Cr Clr Drug Dosing 17.43 mL/min Estimated GFR (MDRD) 16.4 ml/min Glucose 111 H (74-106) mg/dL Calcium 8.0 L (8.5-10.1) mg/dL Med Orders - Current: Current Medications Acetaminophen (Tylenol) 650 mg PO Q4H PRN PRN Reason: Pain (Mild 1-3)/fever Albuterol (Ventolin Hfa) 8 gm INH Q4H PRN PRN Reason: sob Albuterol/Ipratropium (Duoneb 3.0-0.5 Mg/3 Ml) 3 ml NEB Q4HRRT [facility] Last Admin: 06/02/18 06:19 Dose: 3 ml Atorvastatin Calcium (Lipitor) 20 mg PO BEDTIME [facility] Last Admin: 06/01/18 21:16 Dose: 20 mg Carvedilol (Coreg) 6.25 mg PO BID [facility] Last Admin: 06/01/18 21:16 Dose: 6.25 mg Diltiazem HCl (Cardizem Cd) 180 mg PO DAILY [facility] Last Admin: 06/01/18 08:28 Dose: 180 mg Heparin Sodium (Porcine) (Heparin Sodium) 5,000 units SUBCUT Q8H [facility] Last Admin: 06/02/18 05:18 Dose: 5,000 units Hydromorphone HCl (Dilaudid) 1 mg IVPUSH Q3H PRN PRN Reason: Pain (severe 7-10) Last Admin: 06/01/18 22:24 Dose: 1 mg Ertapenem 1 gm/ Sodium (Chloride) 50 mls @ 100 mls/hr IV Q24H [facility] Sodium Chloride (Normal Saline) 1,000 mls @ 125 mls/hr IV ASDIRECTED [facility] Last Admin: 06/02/18 05:19 Dose: 125 mls/hr Ondansetron HCl (Zofran Odt) 4 mg PO Q4H PRN PRN Reason: nausea, able to take PO Fluticasone/Salmeterol (Advair Diskus 250-50) 1 puff INH BID [facility] Last Admin: 06/01/18 21:12 Dose: 1 puff Sodium Chloride (Saline Flush) 10 ml FLUSH ASDIRECTED PRN PRN Reason: Keep Vein Open Last Admin: 05/31/18 10:07 Dose: 10 ml Sodium Chloride (Saline Flush) 2.5 ml FLUSH ASDIRECTED PRN PRN Reason: Keep Vein Open Last Admin: 05/31/18 10:07 Dose: 2.5 ml Tamsulosin HCl (Flomax) 0.4 mg PO PCBREAKFAST [facility] Last Admin: 06/01/18 09:49 Dose: 0.4 mg Temazepam (Restoril) 15 mg PO BEDTIME PRN PRN Reason: Sleep Last Admin: 06/01/18 21:44 Dose: 15 mg Discontinued Medications Enoxaparin Sodium (Lovenox) 30 mg SUBCUT Q24H [facility] Last Admin: 05/31/18 14:30 Dose: 30 mg Hydrochlorothiazide (Hydrochlorothiazide) 25 mg PO DAILY [facility] Last Admin: 06/01/18 08:28 Dose: 25 mg Hydromorphone HCl (Dilaudid) 0.5 mg IVPUSH ONETIME ONE Stop: 05/31/18 09:57 Last Admin: 05/31/18 10:06 Dose: 0.5 mg Hydromorphone HCl (Dilaudid) 0.5 mg IVPUSH ONETIME ONE Stop: 05/31/18 11:54 Last Admin: 05/31/18 12:04 Dose: 0.5 mg Sodium Chloride (Normal Saline) 1,000 mls @ 999 mls/hr IV .Bolus ONE Stop: 05/31/18 10:40 Last Admin: 05/31/18 10:02 Dose: 999 mls/hr Metronidazole 500 mg/ Premix 100 mls @ 100 mls/hr IV ONETIME ONE Stop: 05/31/18 13:12 Last Admin: 05/31/18 12:26 Dose: 100 mls/hr Aztreonam 1 gm/ Sodium (Chloride) 50 mls @ 100 mls/hr IV ONETIME ONE Stop: 05/31/18 12:50 Last Admin: 05/31/18 14:04 Dose: Not Given Sodium Chloride (Normal Saline) 1,000 mls @ 100 mls/hr IV ASDIRECTED [facility] Last Admin: 06/01/18 01:30 Dose: 100 mls/hr Aztreonam 1 gm/ Sodium (Chloride) 50 mls @ 100 mls/hr IV ONETIME ONE Stop: 05/31/18 14:29 Last Admin: 05/31/18 14:16 Dose: 100 mls/hr Aztreonam 2 gm/ Sodium (Chloride) 50 mls @ 100 mls/hr IV Q8HR [facility] Last Admin: 06/01/18 06:01 Dose: 100 mls/hr Metronidazole 500 mg/ Premix 100 mls @ 100 mls/hr IV Q6H [facility] Last Admin: 06/01/18 04:57 Dose: 100 mls/hr Aztreonam 1 gm/ Sodium (Chloride) 50 mls @ 100 mls/hr IV Q8HR [facility] Aztreonam 1 gm/ Sodium (Chloride) 50 mls @ 100 mls/hr IV Q8HR [facility] Ertapenem 1 gm/ Sodium (Chloride) 50 mls @ 100 mls/hr IV Q24H [facility] Last Admin: 06/01/18 10:21 Dose: Not Given Lisinopril (Prinivil) 10 mg PO DAILY [facility] Last Admin: 06/01/18 08:27 Dose: 10 mg Morphine Sulfate (Morphine) 2 mg IVPUSH Q2H PRN PRN Reason: Pain (severe 7-10) Stop: 06/01/18 13:40 Last Admin: 05/31/18 14:11 Dose: 2 mg Ondansetron HCl (Zofran) 4 mg IVPUSH ONETIME ONE Stop: 05/31/18 09:57 Last Admin: 05/31/18 10:07 Dose: 4 mg Oxycodone HCl (Oxycodone) 5 mg PO Q4H PRN PRN Reason: Pain (moderate 4-6) Last Admin: 06/01/18 13:16 Dose: 5 mg Tamsulosin HCl (Flomax) 0.4 mg PO PCBREAKFAST [facility] - Exam General: Alert, Oriented, Cooperative, No Acute Distress Neck: Supple Lungs: Clear to Auscultation, Normal Respiratory Effort. No: Wheezing Cardiovascular: Regular Rate, Regular Rhythm GI/Abdominal Exam: Normal Bowel Sounds, Soft, No Distention, Tender (LLQ) Extremities: Normal Inspection, Normal Range of Motion Neurological: No New Focal Deficit Psy/Mental Status: Alert, Normal Affect, Normal Mood - Problem List & Annotations (1) Abdominal pain SNOMED Code(s): 75309404 Code(s): R10.9 - UNSPECIFIED ABDOMINAL PAIN Status: Acute Priority: High Current Visit: Yes (2) Diverticulitis SNOMED Code(s): 538973909 Code(s): K57.92 - DVTRCLI OF INTEST, PART UNSP, W/O PERF OR ABSCESS W/O BLEED Status: Acute Priority: High Current Visit: Yes (3) Renal calculus or stone SNOMED Code(s): 96442093 Code(s): N20.0 - CALCULUS OF KIDNEY Status: Acute Current Visit: Yes (4) STEPHY (acute kidney injury) SNOMED Code(s): 69991745 Code(s): N17.9 - ACUTE KIDNEY FAILURE, UNSPECIFIED Status: Acute Current Visit: Yes (5) HTN (hypertension) SNOMED Code(s): 15191774 Code(s): I10 - ESSENTIAL (PRIMARY) HYPERTENSION Status: Chronic Current Visit: Yes Qualifiers: Hypertension type: essential hypertension Qualified Code(s): I10 - Essential (primary) hypertension (6) COPD, Moderate chronic obstructive pulmonary disease SNOMED Code(s): 260721133 Code(s): J44.9 - CHRONIC OBSTRUCTIVE PULMONARY DISEASE, UNSPECIFIED Status : Chronic Priority: High Current Visit: Yes (7) Afib SNOMED Code(s): 98914453 Code(s): I48.91 - UNSPECIFIED ATRIAL FIBRILLATION Status: Chronic Current Visit: Yes Qualifiers: Atrial fibrillation type: unspecified Qualified Code(s): I48.91 - Unspecified atrial fibrillation - Problem List Review Problem List Initiated/Reviewed/Updated: Yes - My Orders Last 24 Hours: My Active Orders 06/01/18 08:20 Bladder Scan [RC] ASDIRECTED 06/01/18 09:23 Tamsulosin [Flomax] 0.4 mg PO PCBREAKFAST 06/01/18 11:47 Strain Urine [RC] ASDIRECTED 06/01/18 12:59 Sodium Chloride 0.9% [Normal Saline] 1,000 ml IV ASDIRECTED 06/01/18 13:16 RT Aerosol Therapy [RC] ASDIRECTED 06/01/18 13:35 Ambulate [RC] PER UNIT ROUTINE 06/01/18 14:00 Albuterol/Ipratropium [DuoNeb 3.0-0.5 MG/3 ML] 3 ml NEB Q4HRRT 06/02/18 09:00 Ertapenem [INVanz] 1 gm Sodium Chloride 0.9% [Normal Saline] 50 ml IV Q24H 06/03/18 05:11 BMP [BASIC METABOLIC PANEL,BMP] [CHEM] AM CBC WITH AUTO DIFF [HEME] AM 06/04/18 05:11 BMP [BASIC METABOLIC PANEL,BMP] [CHEM] AM CBC WITH AUTO DIFF [HEME] AM - Plan Plan:: This 78 year old male admitted with acute sigmoid diverticulitis and renal calculus. 1. Acute diverticulitis: Leukocytosis improving. Continue Invanz 1 gm daily for diverticulitis 2. Ileus: Abd xray improved today, negative. Will Advance to CL diet and monitor 3. Renal calculus: Obstructing 4 mm stone in L ureter. UA negative. UC pending. Continue Invanz above. I spoke with Dr Parra, Urologist in [place], recommended to continue Flomax, it will likely pass on its own. Strain all urine. Monitor, if he becomes hemodynamically unstable, then consider transfer. 4. STEPHY: BUN and Cr slightly increased. Continue to monitor. Will hold nephrotoxic medications. Continue IVFs, Holding Lisinopril and HCTZ. 5. COPD: Stable. Continue Advair and add Duonebs for wheezing. 6. HTN: Stable. Monitor, holding Lisinopril and HCTZ due to STEPHY 7. Afib: HR stable. Continue Diltiazem. VTE prophylaxis: Heparin Dispo: 2-4 days pending improvement
[2018-06-02] MEDS ORDERED: Tamsulosin 0.4 MG Cap.ER PO SCH (08:30)
[2018-06-02] MEDS: Fluticasone/Salmeterol 250-50 MCG Inhalation Powder 14/Diskus INH SCH ×2 (08:37→20:59)
[2018-06-02] MEDS: Tamsulosin 0.4 MG Cap.ER PO SCH (09:29)
[2018-06-02] MEDS: Diltiazem 180 MG Cap.CD PO SCH (09:32)
[2018-06-02] MEDS: Carvedilol 6.25 MG Tab PO SCH ×2 (09:32→21:18)
[2018-06-02] MEDS: Ondansetron 4 MG Tab.DIS PO PRN (09:35)
[2018-06-02] MEDS: Acetaminophen 325 MG Tab PO PRN ×2 (09:35→18:06)
[2018-06-02] MEDS: Ertapenem 1 GM in Sodium Chloride 0.9% 50 ML IV SCH (09:42)
[2018-06-02] MEDS: atorvaSTATin 20 MG Tab PO SCH (21:18)
[2018-06-03] MEDS: Albuterol/Ipratropium 3.0-0.5 MG/3 ML Neb Soln NEB SCH ×3 (01:16→09:54)
[2018-06-03] MEDS: Sodium Chloride 0.9% 1,000 ML IV SCH (05:10)
[2018-06-03] MEDS: Heparin Sodium 5,000 Units/ML Vial SUBCUT SCH ×3 (05:30→21:48)
--- NOTE | 2018-06-03 08:04 | PCM.PN ---
- General Info Date of Service: 06/03/18 Admission Dx/Problem (Free Text): Admission Diagnosis/Problem Admission Diagnosis/Problem Diverticulitis, renal calculus Subjective Update: Reports feeling distended and bloated. Had BM this morning. No flatus. Pain much improved, slightly tender to LLQ. No Chest pain. Breathing is slightly labored due to being bloated. Functional Status: Reports: Pain Controlled, Tolerating Diet, Ambulating, Urinating - Review of Systems General: Reports: No Symptoms. Denies: Fever, Fatigue, Malaise HEENT: Reports: No Symptoms. Denies: Headaches, Sore Throat Pulmonary: Reports: Shortness of Breath. Denies: Cough, Wheezing Cardiovascular: Reports: No Symptoms. Denies: Chest Pain, Dyspnea on Exertion, Edema Gastrointestinal: Reports: Abdominal Pain (improved), Other (bloated). Denies: Nausea, Vomiting Genitourinary: Reports: No Symptoms. Denies: Dysuria, Frequency, Burning Musculoskeletal: Reports: No Symptoms Skin: Reports: No Symptoms Neurological: Reports: No Symptoms Psychiatric: Reports: No Symptoms - Patient Data Vitals - Most Recent: Last Vital Signs Temp 98.6 F 06/03/18 05:03 Pulse 69 06/03/18 05:03 Resp 18 06/03/18 05:03 BP 111/53 L 06/03/18 05:03 Pulse Ox 85 L 06/03/18 05:03 Weight - Most Recent: 110.4 kg I&O - Last 24 Hours: Intake & Output 06/02/18 06/03/18 06/03/18 22:59 06:59 14:59 Intake Total 2200 1886 Output Total 475 350 Balance 1725 1536 Lab Results Last 24 Hours: Laboratory Results - last 24 hr 06/03/18 06/03/18 Range/Units 05:15 05:15 WBC 8.43 (4.0-11.0) K/uL RBC 3.38 L (4.50-5.90) M/uL Hgb 10.7 L (13.0-17.0) g/dL Hct 33.3 L (38.0-50.0) % MCV 98.5 H (80.0-98.0) fL MCH 31.7 (27.0-32.0) pg MCHC 32.1 (31.0-37.0) g/dL RDW Std Deviation 51.5 (28.0-62.0) fl RDW Coeff of Libby 14 (11.0-15.0) % Plt Count 244 (150-400) K/uL MPV 10.20 (7.40-12.00) fL Neut % (Auto) 76.3 (48.0-80.0) % Lymph % (Auto) 10.7 L (16.0-40.0) % [place] % (Auto) 8.5 (0.0-15.0) % Eos % (Auto) 4.0 (0.0-7.0) % Baso % (Auto) 0.5 (0.0-1.5) % Neut # (Auto) 6.4 H (1.4-5.7) K/uL Lymph # (Auto) 0.9 (0.6-2.4) K/uL [place] # (Auto) 0.7 (0.0-0.8) K/uL Eos # (Auto) 0.3 (0.0-0.7) K/uL Baso # (Auto) 0.0 (0.0-0.1) K/uL Nucleated RBC % 0.0 /100WBC Nucleated RBCs # 0 K/uL Sodium 142 (136-148) mmol/L Potassium 4.0 (3.5-5.1) mmol/L Chloride 111 H (98-107) mmol/L Carbon Dioxide 18.8 L (21.0-32.0) mmol/L BUN 44 H (7.0-18.0) mg/dL Creatinine 2.7 H (0.8-1.3) mg/dL Est Cr Clr Drug Dosing 23.24 mL/min Estimated GFR (MDRD) 22.9 ml/min Glucose 100 (74-106) mg/dL Calcium 7.9 L (8.5-10.1) mg/dL Med Orders - Current: Current Medications Acetaminophen (Tylenol) 650 mg PO Q4H PRN PRN Reason: Pain (Mild 1-3)/fever Last Admin: 06/02/18 18:06 Dose: 650 mg Albuterol (Ventolin Hfa) 8 gm INH Q4H PRN PRN Reason: sob Albuterol/Ipratropium (Duoneb 3.0-0.5 Mg/3 Ml) 3 ml NEB Q4HRRT [facility] Last Admin: 06/03/18 06:22 Dose: 3 ml Atorvastatin Calcium (Lipitor) 20 mg PO BEDTIME [facility] Last Admin: 06/02/18 21:18 Dose: 20 mg Carvedilol (Coreg) 6.25 mg PO BID [facility] Last Admin: 06/02/18 21:18 Dose: 6.25 mg Diltiazem HCl (Cardizem Cd) 180 mg PO DAILY [facility] Last Admin: 06/02/18 09:32 Dose: 180 mg Heparin Sodium (Porcine) (Heparin Sodium) 5,000 units SUBCUT Q8H [facility] Last Admin: 06/03/18 05:30 Dose: 5,000 units Hydromorphone HCl (Dilaudid) 1 mg IVPUSH Q3H PRN PRN Reason: Pain (severe 7-10) Last Admin: 06/01/18 22:24 Dose: 1 mg Ertapenem 1 gm/ Sodium (Chloride) 50 mls @ 100 mls/hr IV Q24H [facility] Last Admin: 06/02/18 09:42 Dose: 100 mls/hr Sodium Chloride (Normal Saline) 1,000 mls @ 125 mls/hr IV ASDIRECTED [facility] Last Admin: 06/03/18 05:10 Dose: 125 mls/hr Ondansetron HCl (Zofran Odt) 4 mg PO Q4H PRN PRN Reason: nausea, able to take PO Last Admin: 06/02/18 09:35 Dose: 4 mg Fluticasone/Salmeterol (Advair Diskus 250-50) 1 puff INH BID [facility] Last Admin: 06/02/18 20:59 Dose: 1 puff Sodium Chloride (Saline Flush) 10 ml FLUSH ASDIRECTED PRN PRN Reason: Keep Vein Open Last Admin: 05/31/18 10:07 Dose: 10 ml Sodium Chloride (Saline Flush) 2.5 ml FLUSH ASDIRECTED PRN PRN Reason: Keep Vein Open Last Admin: 05/31/18 10:07 Dose: 2.5 ml Tamsulosin HCl (Flomax) 0.4 mg PO PCBREAKFAST [facility] Last Admin: 06/02/18 09:29 Dose: 0.4 mg Temazepam (Restoril) 15 mg PO BEDTIME PRN PRN Reason: Sleep Last Admin: 06/01/18 21:44 Dose: 15 mg Discontinued Medications Enoxaparin Sodium (Lovenox) 30 mg SUBCUT Q24H [facility] Last Admin: 05/31/18 14:30 Dose: 30 mg Hydrochlorothiazide (Hydrochlorothiazide) 25 mg PO DAILY [facility] Last Admin: 06/01/18 08:28 Dose: 25 mg Hydromorphone HCl (Dilaudid) 0.5 mg IVPUSH ONETIME ONE Stop: 05/31/18 09:57 Last Admin: 05/31/18 10:06 Dose: 0.5 mg Hydromorphone HCl (Dilaudid) 0.5 mg IVPUSH ONETIME ONE Stop: 05/31/18 11:54 Last Admin: 05/31/18 12:04 Dose: 0.5 mg Sodium Chloride (Normal Saline) 1,000 mls @ 999 mls/hr IV .Bolus ONE Stop: 05/31/18 10:40 Last Admin: 05/31/18 10:02 Dose: 999 mls/hr Metronidazole 500 mg/ Premix 100 mls @ 100 mls/hr IV ONETIME ONE Stop: 05/31/18 13:12 Last Admin: 05/31/18 12:26 Dose: 100 mls/hr Aztreonam 1 gm/ Sodium (Chloride) 50 mls @ 100 mls/hr IV ONETIME ONE Stop: 05/31/18 12:50 Last Admin: 05/31/18 14:04 Dose: Not Given Sodium Chloride (Normal Saline) 1,000 mls @ 100 mls/hr IV ASDIRECTED [facility] Last Admin: 06/01/18 01:30 Dose: 100 mls/hr Aztreonam 1 gm/ Sodium (Chloride) 50 mls @ 100 mls/hr IV ONETIME ONE Stop: 05/31/18 14:29 Last Admin: 05/31/18 14:16 Dose: 100 mls/hr Aztreonam 2 gm/ Sodium (Chloride) 50 mls @ 100 mls/hr IV Q8HR [facility] Last Admin: 06/01/18 06:01 Dose: 100 mls/hr Metronidazole 500 mg/ Premix 100 mls @ 100 mls/hr IV Q6H [facility] Last Admin: 06/01/18 04:57 Dose: 100 mls/hr Aztreonam 1 gm/ Sodium (Chloride) 50 mls @ 100 mls/hr IV Q8HR [facility] Aztreonam 1 gm/ Sodium (Chloride) 50 mls @ 100 mls/hr IV Q8HR [facility] Ertapenem 1 gm/ Sodium (Chloride) 50 mls @ 100 mls/hr IV Q24H [facility] Last Admin: 06/01/18 10:21 Dose: Not Given Lisinopril (Prinivil) 10 mg PO DAILY [facility] Last Admin: 06/01/18 08:27 Dose: 10 mg Morphine Sulfate (Morphine) 2 mg IVPUSH Q2H PRN PRN Reason: Pain (severe 7-10) Stop: 06/01/18 13:40 Last Admin: 05/31/18 14:11 Dose: 2 mg Ondansetron HCl (Zofran) 4 mg IVPUSH ONETIME ONE Stop: 05/31/18 09:57 Last Admin: 05/31/18 10:07 Dose: 4 mg Oxycodone HCl (Oxycodone) 5 mg PO Q4H PRN PRN Reason: Pain (moderate 4-6) Last Admin: 06/01/18 13:16 Dose: 5 mg Tamsulosin HCl (Flomax) 0.4 mg PO PCBREAKFAST [facility] - Exam General: Alert, Oriented, Cooperative, No Acute Distress Neck: Supple Lungs: Clear to Auscultation, Normal Respiratory Effort. No: Crackles, Rhonchi , Wheezing Cardiovascular: Regular Rate, Regular Rhythm GI/Abdominal Exam: Normal Bowel Sounds, Soft, Distended, Tender (scant tenderness to LLQ) Extremities: Normal Inspection, Normal Range of Motion, Non-Tender, No Pedal Edema Wound/Incisions: Healing Well Neurological: No New Focal Deficit Psy/Mental Status: Alert, Normal Affect, Normal Mood - Problem List & Annotations (1) Abdominal pain SNOMED Code(s): 97996282 Code(s): R10.9 - UNSPECIFIED ABDOMINAL PAIN Status: Acute Priority: High Current Visit: Yes (2) Diverticulitis SNOMED Code(s): 376646904 Code(s): K57.92 - DVTRCLI OF INTEST, PART UNSP, W/O PERF OR ABSCESS W/O BLEED Status: Acute Priority: High Current Visit: Yes (3) Renal calculus or stone SNOMED Code(s): 99951316 Code(s): N20.0 - CALCULUS OF KIDNEY Status: Acute Current Visit: Yes (4) STEPHY (acute kidney injury) SNOMED Code(s): 82135462 Code(s): N17.9 - ACUTE KIDNEY FAILURE, UNSPECIFIED Status: Acute Current Visit: Yes (5) HTN (hypertension) SNOMED Code(s): 56485810 Code(s): I10 - ESSENTIAL (PRIMARY) HYPERTENSION Status: Chronic Current Visit: Yes Qualifiers: Hypertension type: essential hypertension Qualified Code(s): I10 - Essential (primary) hypertension (6) COPD, Moderate chronic obstructive pulmonary disease SNOMED Code(s): 243774855 Code(s): J44.9 - CHRONIC OBSTRUCTIVE PULMONARY DISEASE, UNSPECIFIED Status : Chronic Priority: High Current Visit: Yes (7) Afib SNOMED Code(s): 30378077 Code(s): I48.91 - UNSPECIFIED ATRIAL FIBRILLATION Status: Chronic Current Visit: Yes Qualifiers: Atrial fibrillation type: unspecified Qualified Code(s): I48.91 - Unspecified atrial fibrillation - Problem List Review Problem List Initiated/Reviewed/Updated: Yes - My Orders Last 24 Hours: My Active Orders 06/02/18 09:00 Ertapenem [INVanz] 1 gm Sodium Chloride 0.9% [Normal Saline] 50 ml IV Q24H 06/02/18 Lunch Clear Liquid Diet [DIET] 06/04/18 05:11 BMP [BASIC METABOLIC PANEL,BMP] [CHEM] AM CBC WITH AUTO DIFF [HEME] AM - Plan Plan:: This 78 year old male admitted with acute sigmoid diverticulitis and renal calculus. 1. Acute diverticulitis: Leukocytosis resolved Continue Invanz 1 gm daily for diverticulitis 2. Renal calculus: Obstructing 4 mm stone in L ureter. UA negative. UC mixed holger. Continue Invanz above. 3. STEPHY: BUN and Cr improving. Continue to monitor. Will hold nephrotoxic medications. Holding Lisinopril and HCTZ. 4. COPD: Stable. Continue Advair and add Duonebs for wheezing. 5. HTN: Stable. Monitor, holding Lisinopril and HCTZ due to STEPHY 6. Afib: HR stable. Continue Diltiazem. VTE prophylaxis: Heparin Dispo: 2 days pending improvement
[2018-06-03] MEDS: Tamsulosin 0.4 MG Cap.ER PO SCH (09:44)
[2018-06-03] MEDS: Diltiazem 180 MG Cap.CD PO SCH (09:44)
[2018-06-03] MEDS: Carvedilol 6.25 MG Tab PO SCH ×2 (09:44→21:49)
[2018-06-03] MEDS: Ertapenem 1 GM in Sodium Chloride 0.9% 50 ML IV SCH (09:46)
[2018-06-03] MEDS: Fluticasone/Salmeterol 250-50 MCG Inhalation Powder 14/Diskus INH SCH ×2 (09:53→20:50)
[2018-06-03] MEDS: HYDROmorphone 1 MG/ML Syringe IVPUSH PRN ×2 (15:01→21:56)
[2018-06-03] MEDS ORDERED: Albuterol/Ipratropium 3.0-0.5 MG/3 ML Neb Soln NEB PRN (15:19)
[2018-06-03] MEDS: atorvaSTATin 20 MG Tab PO SCH (21:50)
[2018-06-04] MEDS: Heparin Sodium 5,000 Units/ML Vial SUBCUT SCH ×3 (06:14→21:50)
--- NOTE | 2018-06-04 09:11 | PCM.PN ---
- General Info Date of Service: 06/04/18 Admission Dx/Problem (Free Text): Admission Diagnosis/Problem Admission Diagnosis/Problem Diverticulitis, renal calculus Subjective Update: Pain much improved. Denies headache. SOB at baseline. Bloating much better, continues to pass gas and has BMs. Functional Status: Reports: Pain Controlled, Tolerating Diet, Ambulating, Urinating - Review of Systems General: Reports: No Symptoms. Denies: Fever, Weakness HEENT: Reports: No Symptoms Pulmonary: Reports: No Symptoms. Denies: Shortness of Breath, Cough Cardiovascular: Reports: No Symptoms. Denies: Chest Pain, Edema Gastrointestinal: Reports: No Symptoms, Flatus. Denies: Abdominal Pain Genitourinary: Reports: No Symptoms. Denies: Dysuria, Frequency, Burning, Flank Pain Musculoskeletal: Reports: No Symptoms Skin: Reports: No Symptoms Neurological: Reports: No Symptoms Psychiatric: Reports: No Symptoms - Patient Data Vitals - Most Recent: Last Vital Signs Temp 99 F 06/04/18 04:00 Pulse 66 06/04/18 04:00 Resp 17 06/04/18 04:00 BP 129/57 L 06/04/18 04:00 Pulse Ox 90 L 06/04/18 04:00 Weight - Most Recent: 110.4 kg I&O - Last 24 Hours: Intake & Output 06/03/18 06/04/18 06/04/18 22:59 06:59 14:59 Intake Total 500 Output Total 200 Balance 300 Lab Results Last 24 Hours: Laboratory Results - last 24 hr 06/04/18 06/04/18 Range/Units 04:58 04:58 WBC 7.71 (4.0-11.0) K/uL RBC 3.30 L (4.50-5.90) M/uL Hgb 10.2 L (13.0-17.0) g/dL Hct 32.3 L (38.0-50.0) % MCV 97.9 (80.0-98.0) fL MCH 30.9 (27.0-32.0) pg MCHC 31.6 (31.0-37.0) g/dL RDW Std Deviation 51.0 (28.0-62.0) fl RDW Coeff of Libby 14 (11.0-15.0) % Plt Count 228 (150-400) K/uL MPV 10.90 (7.40-12.00) fL Neut % (Auto) 71.7 (48.0-80.0) % Lymph % (Auto) 10.6 L (16.0-40.0) % [place] % (Auto) 12.8 (0.0-15.0) % Eos % (Auto) 4.4 (0.0-7.0) % Baso % (Auto) 0.5 (0.0-1.5) % Neut # (Auto) 5.5 (1.4-5.7) K/uL Lymph # (Auto) 0.8 (0.6-2.4) K/uL [place] # (Auto) 1.0 H (0.0-0.8) K/uL Eos # (Auto) 0.3 (0.0-0.7) K/uL Baso # (Auto) 0.0 (0.0-0.1) K/uL Nucleated RBC % 0.0 /100WBC Nucleated RBCs # 0 K/uL Sodium 141 (136-148) mmol/L Potassium 3.7 (3.5-5.1) mmol/L Chloride 112 H (98-107) mmol/L Carbon Dioxide 20.6 L (21.0-32.0) mmol/L BUN 39 H (7.0-18.0) mg/dL Creatinine 2.4 H (0.8-1.3) mg/dL Est Cr Clr Drug Dosing 26.15 mL/min Estimated GFR (MDRD) 26.2 ml/min Glucose 115 H (74-106) mg/dL Calcium 8.0 L (8.5-10.1) mg/dL [place] Results Last 24 Hours: Microbiology 06/01/18 Unknown Urine Culture - Final Urine, Clean Catch MIXED HOLGER >100,000 CFU/ML Med Orders - Current: Current Medications Acetaminophen (Tylenol) 650 mg PO Q4H PRN PRN Reason: Pain (Mild 1-3)/fever Last Admin: 06/02/18 18:06 Dose: 650 mg Albuterol (Ventolin Hfa) 8 gm INH Q4H PRN PRN Reason: sob Albuterol/Ipratropium (Duoneb 3.0-0.5 Mg/3 Ml) 3 ml NEB Q4HRRT PRN PRN Reason: sob/wheezing Atorvastatin Calcium (Lipitor) 20 mg PO BEDTIME [facility] Last Admin: 06/03/18 21:50 Dose: 20 mg Carvedilol (Coreg) 6.25 mg PO BID [facility] Last Admin: 06/03/18 21:49 Dose: 6.25 mg Diltiazem HCl (Cardizem Cd) 180 mg PO DAILY [facility] Last Admin: 06/03/18 09:44 Dose: 180 mg Heparin Sodium (Porcine) (Heparin Sodium) 5,000 units SUBCUT Q8H [facility] Last Admin: 06/04/18 06:14 Dose: 5,000 units Hydromorphone HCl (Dilaudid) 1 mg IVPUSH Q3H PRN PRN Reason: Pain (severe 7-10) Last Admin: 06/03/18 21:56 Dose: 1 mg Ertapenem 1 gm/ Sodium (Chloride) 50 mls @ 100 mls/hr IV Q24H [facility] Last Admin: 06/03/18 09:46 Dose: 100 mls/hr Ondansetron HCl (Zofran Odt) 4 mg PO Q4H PRN PRN Reason: nausea, able to take PO Last Admin: 06/02/18 09:35 Dose: 4 mg Fluticasone/Salmeterol (Advair Diskus 250-50) 1 puff INH BID [facility] Last Admin: 06/03/18 20:50 Dose: 1 puff Sodium Chloride (Saline Flush) 10 ml FLUSH ASDIRECTED PRN PRN Reason: Keep Vein Open Last Admin: 05/31/18 10:07 Dose: 10 ml Sodium Chloride (Saline Flush) 2.5 ml FLUSH ASDIRECTED PRN PRN Reason: Keep Vein Open Last Admin: 05/31/18 10:07 Dose: 2.5 ml Tamsulosin HCl (Flomax) 0.4 mg PO PCBREAKFAST [facility] Last Admin: 06/03/18 09:44 Dose: 0.4 mg Temazepam (Restoril) 15 mg PO BEDTIME PRN PRN Reason: Sleep Last Admin: 06/01/18 21:44 Dose: 15 mg Discontinued Medications Albuterol/Ipratropium (Duoneb 3.0-0.5 Mg/3 Ml) 3 ml NEB Q4HRRT [facility] Last Admin: 06/03/18 09:54 Dose: Not Given Enoxaparin Sodium (Lovenox) 30 mg SUBCUT Q24H [facility] Last Admin: 05/31/18 14:30 Dose: 30 mg Hydrochlorothiazide (Hydrochlorothiazide) 25 mg PO DAILY [facility] Last Admin: 06/01/18 08:28 Dose: 25 mg Hydromorphone HCl (Dilaudid) 0.5 mg IVPUSH ONETIME ONE Stop: 05/31/18 09:57 Last Admin: 05/31/18 10:06 Dose: 0.5 mg Hydromorphone HCl (Dilaudid) 0.5 mg IVPUSH ONETIME ONE Stop: 05/31/18 11:54 Last Admin: 05/31/18 12:04 Dose: 0.5 mg Sodium Chloride (Normal Saline) 1,000 mls @ 999 mls/hr IV .Bolus ONE Stop: 05/31/18 10:40 Last Admin: 05/31/18 10:02 Dose: 999 mls/hr Metronidazole 500 mg/ Premix 100 mls @ 100 mls/hr IV ONETIME ONE Stop: 05/31/18 13:12 Last Admin: 05/31/18 12:26 Dose: 100 mls/hr Aztreonam 1 gm/ Sodium (Chloride) 50 mls @ 100 mls/hr IV ONETIME ONE Stop: 05/31/18 12:50 Last Admin: 05/31/18 14:04 Dose: Not Given Sodium Chloride (Normal Saline) 1,000 mls @ 100 mls/hr IV ASDIRECTED [facility] Last Admin: 06/01/18 01:30 Dose: 100 mls/hr Aztreonam 1 gm/ Sodium (Chloride) 50 mls @ 100 mls/hr IV ONETIME ONE Stop: 05/31/18 14:29 Last Admin: 05/31/18 14:16 Dose: 100 mls/hr Aztreonam 2 gm/ Sodium (Chloride) 50 mls @ 100 mls/hr IV Q8HR [facility] Last Admin: 06/01/18 06:01 Dose: 100 mls/hr Metronidazole 500 mg/ Premix 100 mls @ 100 mls/hr IV Q6H [facility] Last Admin: 06/01/18 04:57 Dose: 100 mls/hr Aztreonam 1 gm/ Sodium (Chloride) 50 mls @ 100 mls/hr IV Q8HR [facility] Aztreonam 1 gm/ Sodium (Chloride) 50 mls @ 100 mls/hr IV Q8HR [facility] Ertapenem 1 gm/ Sodium (Chloride) 50 mls @ 100 mls/hr IV Q24H [facility] Last Admin: 06/01/18 10:21 Dose: Not Given Sodium Chloride (Normal Saline) 1,000 mls @ 125 mls/hr IV ASDIRECTED [facility] Last Admin: 06/03/18 05:10 Dose: 125 mls/hr Lisinopril (Prinivil) 10 mg PO DAILY [facility] Last Admin: 06/01/18 08:27 Dose: 10 mg Morphine Sulfate (Morphine) 2 mg IVPUSH Q2H PRN PRN Reason: Pain (severe 7-10) Stop: 06/01/18 13:40 Last Admin: 05/31/18 14:11 Dose: 2 mg Ondansetron HCl (Zofran) 4 mg IVPUSH ONETIME ONE Stop: 05/31/18 09:57 Last Admin: 05/31/18 10:07 Dose: 4 mg Oxycodone HCl (Oxycodone) 5 mg PO Q4H PRN PRN Reason: Pain (moderate 4-6) Last Admin: 06/01/18 13:16 Dose: 5 mg Tamsulosin HCl (Flomax) 0.4 mg PO PCBREAKFAST [facility] - Exam Quality Assessment: DVT Prophylaxis. No: Supplemental Oxygen General: Alert, Oriented, Cooperative Neck: Supple Lungs: Clear to Auscultation, Normal Respiratory Effort Cardiovascular: Regular Rate, Regular Rhythm GI/Abdominal Exam: Normal Bowel Sounds, Soft, Non-Tender, No Mass Extremities: Normal Inspection, Normal Range of Motion, Non-Tender Neurological: No New Focal Deficit Psy/Mental Status: Alert, Normal Affect, Normal Mood - Problem List & Annotations (1) Abdominal pain SNOMED Code(s): 81712208 Code(s): R10.9 - UNSPECIFIED ABDOMINAL PAIN Status: Acute Priority: High Current Visit: Yes (2) Diverticulitis SNOMED Code(s): 500826867 Code(s): K57.92 - DVTRCLI OF INTEST, PART UNSP, W/O PERF OR ABSCESS W/O BLEED Status: Acute Priority: High Current Visit: Yes (3) Renal calculus or stone SNOMED Code(s): 98678115 Code(s): N20.0 - CALCULUS OF KIDNEY Status: Acute Current Visit: Yes (4) STEPHY (acute kidney injury) SNOMED Code(s): 73616693 Code(s): N17.9 - ACUTE KIDNEY FAILURE, UNSPECIFIED Status: Acute Current Visit: Yes (5) HTN (hypertension) SNOMED Code(s): 29100125 Code(s): I10 - ESSENTIAL (PRIMARY) HYPERTENSION Status: Chronic Current Visit: Yes Qualifiers: Hypertension type: essential hypertension Qualified Code(s): I10 - Essential (primary) hypertension (6) COPD, Moderate chronic obstructive pulmonary disease SNOMED Code(s): 875659545 Code(s): J44.9 - CHRONIC OBSTRUCTIVE PULMONARY DISEASE, UNSPECIFIED Status : Chronic Priority: High Current Visit: Yes (7) Afib SNOMED Code(s): 81326498 Code(s): I48.91 - UNSPECIFIED ATRIAL FIBRILLATION Status: Chronic Current Visit: Yes Qualifiers: Atrial fibrillation type: unspecified Qualified Code(s): I48.91 - Unspecified atrial fibrillation - Problem List Review Problem List Initiated/Reviewed/Updated: Yes - My Orders Last 24 Hours: My Active Orders 06/03/18 15:19 Albuterol/Ipratropium [DuoNeb 3.0-0.5 MG/3 ML] 3 ml NEB Q4HRRT PRN 06/03/18 Lunch Full Liquid Diet [DIET] - Plan Plan:: This 78 year old male admitted with acute sigmoid diverticulitis and renal calculus. 1. Acute diverticulitis: Continue Invanz 1 gm daily for diverticulitis, discharge with bactrim and Flagyl 2. Renal calculus: Obstructing 4 mm stone in L ureter. UA negative. UC mixed holger. Continue Invanz above and Flomax. Likley passed as no further pain. 3. STEPHY: Continues to improve Continue to monitor. Will hold nephrotoxic medications. Holding Lisinopril and HCTZ. 4. COPD: Stable. Continue Advair and add Duonebs for wheezing. 5. HTN: Stable. Monitor, holding Lisinopril and HCTZ due to STEPHY 6. Afib: HR stable. Continue Diltiazem. VTE prophylaxis: Heparin Dispo: likely DC in am in STEPHY improves.
[2018-06-04] MEDS: Fluticasone/Salmeterol 250-50 MCG Inhalation Powder 14/Diskus INH SCH ×2 (09:19→20:47)
[2018-06-04] MEDS: Carvedilol 6.25 MG Tab PO SCH ×2 (09:33→21:50)
[2018-06-04] MEDS: Tamsulosin 0.4 MG Cap.ER PO SCH (09:34)
[2018-06-04] MEDS: Diltiazem 180 MG Cap.CD PO SCH (09:34)
[2018-06-04] MEDS: Ertapenem 1 GM in Sodium Chloride 0.9% 50 ML IV SCH (11:03)
[2018-06-04] MEDS: Albuterol/Ipratropium 3.0-0.5 MG/3 ML Neb Soln NEB SCH (11:29)
[2018-06-04] MEDS: Ondansetron 4 MG Tab.DIS PO PRN (14:40)
[2018-06-04] MEDS: atorvaSTATin 20 MG Tab PO SCH (21:51)
[2018-06-04] MEDS: Temazepam 15 MG Cap PO PRN (21:52)
[2018-06-05] MEDS: Heparin Sodium 5,000 Units/ML Vial SUBCUT SCH (05:25)
[2018-06-05] MEDS: Tamsulosin 0.4 MG Cap.ER PO SCH (08:34)
[2018-06-05] MEDS: Carvedilol 6.25 MG Tab PO SCH (08:34)
[2018-06-05] MEDS: Diltiazem 180 MG Cap.CD PO SCH (08:34)
[2018-06-05] MEDS: Ertapenem 1 GM in Sodium Chloride 0.9% 50 ML IV SCH (08:35)
[2018-06-05 08:37] VITALS: BP 140/67
[2018-06-05] MEDS: Fluticasone/Salmeterol 250-50 MCG Inhalation Powder 14/Diskus INH SCH (08:55)
--- NOTE | 2018-06-05 09:08 | PCM.DCSUM1 ---
Discharge Summary - Hospital Course Brief History: The patient is an 78-year-old gentleman who had presented to the emergency department out of concern for left-sided abdominal pain. The patient says that he has been having pain in his left lower abdomen for approximately 6 days. The patient says that the pain was similar to a kidney stone that he had on the right side and he thought that this was in fact another kidney stone. The pain did not go away and in fact got worse resulting in his presentation. 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 The patient has denied any fever but, has had chills. The patient also has had no specific aggravating or relieving factor and he has described the pain as cramping, sharp and stabbing and comes and goes. Diagnosis: Stroke: No - Discharge Data Discharge Date: 06/05/18 Discharge Disposition: Home, Self-Care 01 Condition: Good - Discharge Diagnosis/Problem(s) (1) Abdominal pain SNOMED Code(s): 23688152 ICD Code: R10.9 - UNSPECIFIED ABDOMINAL PAIN Status: Acute Priority: High Current Visit: Yes (2) Diverticulitis SNOMED Code(s): 603557171 ICD Code: K57.92 - DVTRCLI OF INTEST, PART UNSP, W/O PERF OR ABSCESS W/O BLEED Status: Resolved Priority: High Current Visit: Yes (3) Renal calculus or stone SNOMED Code(s): 89108159 ICD Code: N20.0 - CALCULUS OF KIDNEY Status: Acute Current Visit: Yes (4) STEPHY (acute kidney injury) SNOMED Code(s): 95834271 ICD Code: N17.9 - ACUTE KIDNEY FAILURE, UNSPECIFIED Status: Acute Current Visit: Yes (5) HTN (hypertension) SNOMED Code(s): 61410162 ICD Code: I10 - ESSENTIAL (PRIMARY) HYPERTENSION Status: Chronic Current Visit: Yes Qualifiers: Hypertension type: essential hypertension Qualified Code(s): I10 - Essential (primary) hypertension (6) COPD, Moderate chronic obstructive pulmonary disease SNOMED Code(s): 663058656 ICD Code: J44.9 - CHRONIC OBSTRUCTIVE PULMONARY DISEASE, UNSPECIFIED Status : Chronic Priority: High Current Visit: Yes (7) Afib SNOMED Code(s): 65008938 ICD Code: I48.91 - UNSPECIFIED ATRIAL FIBRILLATION Status: Chronic Current Visit: Yes Qualifiers: Atrial fibrillation type: unspecified Qualified Code(s): I48.91 - Unspecified atrial fibrillation - Patient Instructions Diet: Heart Healthy Diet, GI Soft/Low Residue/Low Fiber Activity: As Tolerated Showering/Bathing: May Shower Notify Provider of: Fever, Increased Pain, Swelling and Redness, Drainage, Nausea and/or Vomiting - Discharge Plan *PRESCRIPTION DRUG MONITORING PROGRAM REVIEWED*: No *COPY OF PRESCRIPTION DRUG MONITORING REPORT IN PATIENT ALEX: No Prescriptions/Med Rec: metroNIDAZOLE [Flagyl] 500 mg PO Q8H #18 tab Sulfamethoxazole/Trimethoprim [Bactrim 400-80 MG] 1 each PO BID #12 tablet Tamsulosin [Flomax] 0.4 mg PO PCBREAKFAST #30 cap.er Home Medications: Home Meds Carvedilol [Coreg] 6.25 mg PO BID 12/19/13 [History] Diltiazem HCl [Diltiazem 24Hr ER] 180 mg PO DAILY 12/19/13 [History] Lisinopril [Prinivil] 10 mg PO DAILY 12/19/13 [History] atorvaSTATin [Lipitor] 20 mg PO BEDTIME 12/19/13 [History] Albuterol [Ventolin HFA] 2 puff INH Q4H PRN 05/31/18 [History] Cholecalciferol (Vitamin D3) [Vitamin D3] 1 cap PO DAILY 05/31/18 [History] Fluticasone/Salmeterol [Advair 250-50 Diskus] 1 puff INH BID 05/31/18 [History] Methylsulfonylmethane [MSM] 1,200 mg PO DAILY 05/31/18 [History] Saw/Vit E/Sod Mechelle/Lyc/Beta/Pyg [Prostate Health Caplet] 2 tab PO DAILY 05/31/18 [History] Sodium Bicarbonate 650 mg PO BID 05/31/18 [History] hydroCHLOROthiazide [Hydrochlorothiazide] 25 mg PO DAILY 05/31/18 [History] Sulfamethoxazole/Trimethoprim [Bactrim 400-80 MG] 1 each PO BID #12 tablet 06/05 [Rx] Tamsulosin [Flomax] 0.4 mg PO PCBREAKFAST #30 cap.er 06/05/18 [Rx] metroNIDAZOLE [Flagyl] 500 mg PO Q8H #18 tab 06/05/18 [Rx] Patient Handouts: Kidney Stones, Diverticulitis, [id number], Metronidazole extended-release tablets, Tamsulosin capsules, Sulfamethoxazole; Trimethoprim, SMX-TMP tablets Referrals: Tomy Huggins MD [Primary Care Provider] - 06/12/18 9:00 am Kaylynn Fowler MD [Physician] - 06/10/18 1:00 pm (Do X-ray flat abdomen 1view prior to scheduled follow-up appointment.) - Discharge Summary/Plan Comment DC Time >30 min.: No Discharge Summary/Plan Comment: Discharge Diagnoses: Renal stone Diverticulitis HTN COPD Arthur was admitted initially with acute diverticulitis. CT was reviewed again and it was noted he had an obstructing 4 mm L renal stone. I spoke with Dr Parra [place] [address] regarding management. He recommended continuing Flomax and hydration, he would likely pass stone. If he were to become unstable he would recommend transfer for stenting at that time. We continued antibiotics, due to allergies, we used Invanz daily. Leukocytosis improved, pain slowly improved as well. We held his Lisinopril/HCTZ due to STEPHY, which is now back to baseline. Today he is tolerating diet well and has no further abdominal pain. He will be discharged home on Bactrim single strength and Flagyl for diverticulitis as well as UTI for another 6 days, 10 days total treatment. UC returned mixed holger. He will have follow up with PCP and Dr Fowler regarding renal stone. He is to return to the ED or clinic if concerns should arise. - General Info Date of Service: 06/05/18 Admission Dx/Problem (Free Text: Admission Diagnosis/Problem Admission Diagnosis/Problem Diverticulitis, renal calculus Subjective Update: Sitting on edge of bed, reports feeling much better today. No further abdominal pain. No chest pains. SOB is at baseline, no concerns. Very eager to go home today. Functional Status: Reports: Pain Controlled, Tolerating Diet, Ambulating, Urinating - Review of Systems General: Reports: No Symptoms. Denies: Fever, Weakness, Malaise HEENT: Reports: No Symptoms. Denies: Headaches, Sore Throat Pulmonary: Reports: No Symptoms. Denies: Shortness of Breath Cardiovascular: Reports: No Symptoms. Denies: Chest Pain Gastrointestinal: Reports: No Symptoms, Flatus. Denies: Abdominal Pain, Nausea , Vomiting Genitourinary: Reports: No Symptoms. Denies: Dysuria, Frequency, Burning Musculoskeletal: Reports: No Symptoms Skin: Reports: No Symptoms Neurological: Reports: No Symptoms Psychiatric: Reports: No Symptoms - Patient Data Vitals - Most Recent: Last Vital Signs Temp 97.6 F 06/05/18 08:00 Pulse 80 06/05/18 08:34 Resp 18 06/05/18 08:00 BP 140/67 06/05/18 08:34 Pulse Ox 92 L 06/05/18 08:00 Weight - Most Recent: 110.4 kg I&O - Last 24 hours: Intake & Output 06/04/18 06/05/18 06/05/18 22:59 06:59 14:59 Intake Total 840 400 50 Output Total 260 230 Balance 580 170 50 Lab Results - Last 24 hrs: Laboratory Results - last 24 hr 06/05/18 06/05/18 Range/Units 04:46 04:46 WBC 6.78 (4.0-11.0) K/uL RBC 3.30 L (4.50-5.90) M/uL Hgb 10.3 L (13.0-17.0) g/dL Hct 31.7 L (38.0-50.0) % MCV 96.1 (80.0-98.0) fL MCH 31.2 (27.0-32.0) pg MCHC 32.5 (31.0-37.0) g/dL RDW Std Deviation 49.0 (28.0-62.0) fl RDW Coeff of Libby 14 (11.0-15.0) % Plt Count 267 (150-400) K/uL MPV 10.50 (7.40-12.00) fL Neut % (Auto) 65.5 (48.0-80.0) % Lymph % (Auto) 15.3 L (16.0-40.0) % [place] % (Auto) 12.4 (0.0-15.0) % Eos % (Auto) 5.9 (0.0-7.0) % Baso % (Auto) 0.9 (0.0-1.5) % Neut # (Auto) 4.4 (1.4-5.7) K/uL Lymph # (Auto) 1.0 (0.6-2.4) K/uL [place] # (Auto) 0.8 (0.0-0.8) K/uL Eos # (Auto) 0.4 (0.0-0.7) K/uL Baso # (Auto) 0.1 (0.0-0.1) K/uL Nucleated RBC % 0.0 /100WBC Nucleated RBCs # 0 K/uL Sodium 143 (136-148) mmol/L Potassium 3.4 L (3.5-5.1) mmol/L Chloride 111 H (98-107) mmol/L Carbon Dioxide 21.6 (21.0-32.0) mmol/L BUN 32 H (7.0-18.0) mg/dL Creatinine 2.1 H (0.8-1.3) mg/dL Est Cr Clr Drug Dosing 29.88 mL/min Estimated GFR (MDRD) 30.5 ml/min Glucose 101 (74-106) mg/dL Calcium 8.4 L (8.5-10.1) mg/dL Med Orders - Current: Current Medications Acetaminophen (Tylenol) 650 mg PO Q4H PRN PRN Reason: Pain (Mild 1-3)/fever Last Admin: 06/02/18 18:06 Dose: 650 mg Albuterol (Ventolin Hfa) 8 gm INH Q4H PRN PRN Reason: sob Albuterol/Ipratropium (Duoneb 3.0-0.5 Mg/3 Ml) 3 ml NEB Q4HRRT PRN PRN Reason: sob/wheezing Atorvastatin Calcium (Lipitor) 20 mg PO BEDTIME [facility] Last Admin: 06/04/18 21:51 Dose: 20 mg Carvedilol (Coreg) 6.25 mg PO BID [facility] Last Admin: 06/05/18 08:34 Dose: 6.25 mg Diltiazem HCl (Cardizem Cd) 180 mg PO DAILY [facility] Last Admin: 06/05/18 08:34 Dose: 180 mg Heparin Sodium (Porcine) (Heparin Sodium) 5,000 units SUBCUT Q8H [facility] Last Admin: 06/05/18 05:25 Dose: 5,000 units Hydromorphone HCl (Dilaudid) 1 mg IVPUSH Q3H PRN PRN Reason: Pain (severe 7-10) Last Admin: 06/03/18 21:56 Dose: 1 mg Ertapenem 1 gm/ Sodium (Chloride) 50 mls @ 100 mls/hr IV Q24H [facility] Last Admin: 06/05/18 08:35 Dose: 100 mls/hr Ondansetron HCl (Zofran Odt) 4 mg PO Q4H PRN PRN Reason: nausea, able to take PO Last Admin: 06/04/18 14:40 Dose: 4 mg Fluticasone/Salmeterol (Advair Diskus 250-50) 1 puff INH BID [facility] Last Admin: 06/05/18 08:55 Dose: 1 puff Sodium Chloride (Saline Flush) 10 ml FLUSH ASDIRECTED PRN PRN Reason: Keep Vein Open Last Admin: 05/31/18 10:07 Dose: 10 ml Sodium Chloride (Saline Flush) 2.5 ml FLUSH ASDIRECTED PRN PRN Reason: Keep Vein Open Last Admin: 05/31/18 10:07 Dose: 2.5 ml Tamsulosin HCl (Flomax) 0.4 mg PO PCBREAKFAST [facility] Last Admin: 06/05/18 08:34 Dose: 0.4 mg Temazepam (Restoril) 15 mg PO BEDTIME PRN PRN Reason: Sleep Last Admin: 06/04/18 21:52 Dose: 15 mg Discontinued Medications Albuterol/Ipratropium (Duoneb 3.0-0.5 Mg/3 Ml) 3 ml NEB Q4HRRT [facility] Last Admin: 06/04/18 11:29 Dose: Not Given Enoxaparin Sodium (Lovenox) 30 mg SUBCUT Q24H [facility] Last Admin: 05/31/18 14:30 Dose: 30 mg Hydrochlorothiazide (Hydrochlorothiazide) 25 mg PO DAILY [facility] Last Admin: 06/01/18 08:28 Dose: 25 mg Hydromorphone HCl (Dilaudid) 0.5 mg IVPUSH ONETIME ONE Stop: 05/31/18 09:57 Last Admin: 05/31/18 10:06 Dose: 0.5 mg Hydromorphone HCl (Dilaudid) 0.5 mg IVPUSH ONETIME ONE Stop: 05/31/18 11:54 Last Admin: 05/31/18 12:04 Dose: 0.5 mg Sodium Chloride (Normal Saline) 1,000 mls @ 999 mls/hr IV .Bolus ONE Stop: 05/31/18 10:40 Last Admin: 05/31/18 10:02 Dose: 999 mls/hr Metronidazole 500 mg/ Premix 100 mls @ 100 mls/hr IV ONETIME ONE Stop: 05/31/18 13:12 Last Admin: 05/31/18 12:26 Dose: 100 mls/hr Aztreonam 1 gm/ Sodium (Chloride) 50 mls @ 100 mls/hr IV ONETIME ONE Stop: 05/31/18 12:50 Last Admin: 05/31/18 14:04 Dose: Not Given Sodium Chloride (Normal Saline) 1,000 mls @ 100 mls/hr IV ASDIRECTED [facility] Last Admin: 06/01/18 01:30 Dose: 100 mls/hr Aztreonam 1 gm/ Sodium (Chloride) 50 mls @ 100 mls/hr IV ONETIME ONE Stop: 05/31/18 14:29 Last Admin: 05/31/18 14:16 Dose: 100 mls/hr Aztreonam 2 gm/ Sodium (Chloride) 50 mls @ 100 mls/hr IV Q8HR [facility] Last Admin: 06/01/18 06:01 Dose: 100 mls/hr Metronidazole 500 mg/ Premix 100 mls @ 100 mls/hr IV Q6H [facility] Last Admin: 06/01/18 04:57 Dose: 100 mls/hr Aztreonam 1 gm/ Sodium (Chloride) 50 mls @ 100 mls/hr IV Q8HR [facility] Aztreonam 1 gm/ Sodium (Chloride) 50 mls @ 100 mls/hr IV Q8HR [facility] Ertapenem 1 gm/ Sodium (Chloride) 50 mls @ 100 mls/hr IV Q24H [facility] Last Admin: 06/01/18 10:21 Dose: Not Given Sodium Chloride (Normal Saline) 1,000 mls @ 125 mls/hr IV ASDIRECTED [facility] Last Admin: 06/03/18 05:10 Dose: 125 mls/hr Lisinopril (Prinivil) 10 mg PO DAILY [facility] Last Admin: 06/01/18 08:27 Dose: 10 mg Morphine Sulfate (Morphine) 2 mg IVPUSH Q2H PRN PRN Reason: Pain (severe 7-10) Stop: 06/01/18 13:40 Last Admin: 05/31/18 14:11 Dose: 2 mg Ondansetron HCl (Zofran) 4 mg IVPUSH ONETIME ONE Stop: 05/31/18 09:57 Last Admin: 05/31/18 10:07 Dose: 4 mg Oxycodone HCl (Oxycodone) 5 mg PO Q4H PRN PRN Reason: Pain (moderate 4-6) Last Admin: 06/01/18 13:16 Dose: 5 mg Tamsulosin HCl (Flomax) 0.4 mg PO PCBREAKFAST GABI - Exam General: Reports: Alert, Oriented, Cooperative, No Acute Distress Lungs: Reports: Clear to Auscultation, Normal Respiratory Effort Cardiovascular: Reports: Regular Rate, Regular Rhythm GI/Abdominal Exam: Normal Bowel Sounds, Soft, Non-Tender, No Distention Back Exam: Reports: Normal Inspection, Full Range of Motion Extremities: Normal Inspection, Normal Range of Motion, Non-Tender Neurological: Reports: No New Focal Deficit Psy/Mental Status: Reports: Alert, Normal Affect, Normal Mood
== END 2018-06-05 13:00 | disposition home or self-care (01) | DRG 392 ==
LOC: MW.ED 09:29 → MW.MS 12:10 → UNDOADMIN 12:57 → UNDODISIN 06-05 13:00
PROVIDERS: ADMIT Internal Medicine; ATTEND Internal Medicine
DX: K57.92 Diverticulitis of intestine, part unspecified, without perforation or abscess without bleeding (principal); K57.32 Diverticulitis of large intestine without perforation or abscess without bleeding; K56.7 Ileus, unspecified; N17.9 Acute kidney failure, unspecified; N39.0 Urinary tract infection, site not specified; Z88.8 Allergy status to other drugs, medicaments and biological substances; N20.1 Calculus of ureter; R19.7 Diarrhea, unspecified; R11.0 Nausea; R10.32 Left lower quadrant pain; R42 Dizziness and giddiness; K52.9 Noninfective gastroenteritis and colitis, unspecified; I48.91 Unspecified atrial fibrillation; E78.00 Pure hypercholesterolemia, unspecified; I10 Essential (primary) hypertension; J43.9 Emphysema, unspecified; Z90.49 Acquired absence of other specified parts of digestive tract; Z87.891 Personal history of nicotine dependence; Z87.442 Personal history of urinary calculi; Z88.0 Allergy status to penicillin; Z88.6 Allergy status to analgesic agent; Z88.1 Allergy status to other antibiotic agents; Z79.899 Other long term (current) drug therapy
CPT/HCPCS: 36415; 74176; 80053; 83690; 85025; 96361; 96365; 96375; 96376; 99285; J1170 ×2; J2405; J3490; J7040; 74019; 74019-26; 80048; 81001; 87086; 94640; A9270-GY; J1335; J1644; J1650; J2270; J7050; J7620-GY

== ENCOUNTER 2018-06-16 07:47 | Day surgery (SDC) | payer MEDICARE, BC ==
[~2018-06-16 07:47] MED LIST: Lactated Ringers 1,000 ML IV SCH; Sodium Chloride 0.9% 10 ML Syringe FLUSH PRN; Sodium Chloride 0.9% 2.5 ML Syringe FLUSH PRN
--- NOTE | 2018-06-16 08:55 | PCM.PREANE ---
Preanesthetic Assessment - Anesthesia/Transfusion/Family Hx Anesthesia History: Prior Anesthesia Without Reaction Other Type of Anesthesia Reaction Comment: COPD Family History of Anesthesia Reaction: No Transfusion History: No Prior Transfusion(s) Intubation History: Unknown - Review of Systems General: No Symptoms Pulmonary: No Symptoms Cardiovascular: No Symptoms Gastrointestinal: No Symptoms Neurological: No Symptoms Other: Reports: None - Physical Assessment O2 Sat by Pulse Oximetry: 93 Respiratory Rate: 16 Vital Signs: Last Vital Signs Temp 36.6 C 06/16/18 08:41 Pulse 65 06/16/18 08:41 Resp 16 06/16/18 08:41 BP 153/72 H 06/16/18 08:41 Pulse Ox 93 L 06/16/18 08:41 Height: 1.8 m Weight: 112.037 kg ASA Class: 3 Mental Status: Alert & Oriented x3 Airway Class: Mallampati = 3 Dentition: Reports: Dentures (upper) Thyro-Mental Finger Breadths: 3 Mouth Opening Finger Breadths: 2 (very small mouth) ROM/Head Extension: Limited/Partial Lungs: Clear to Auscultation, Normal Respiratory Effort Cardiovascular: Regular Rate, Regular Rhythm - Allergies Allergies/Adverse Reactions: Allergies Allergy/AdvReac Type Severity Reaction Status Date / Time Penicillins Allergy Unknown Shortness Verified 06/12/18 10:35 of Breath amoxicillin Allergy Shortness Verified 06/12/18 10:34 of Breath ciprofloxacin Allergy Shortness Verified 06/12/18 10:35 of Breath clarithromycin Allergy Shortness Verified 06/12/18 10:35 of Breath codeine Allergy Stomach Verified 06/12/18 07:31 Upset metronidazole [From Flagyl] Allergy Shortness Verified 06/12/18 10:34 of Breath peanut Allergy "dont take Verified 06/12/18 10:36 due to diverticulitis" - Blood Blood Available: No - Anesthesia Plan Pre-Op Medication Ordered: None - Acknowledgements Anesthesia Type Planned: General Anesthesia Pt an Appropriate Candidate for the Planned Anesthesia: Yes Alternatives and Risks of Anesthesia Discussed w Pt/Guardian: Yes Pt/Guardian Understands and Agrees with Anesthesia Plan: Yes PreAnesthesia Questionnaire HEENT History: Reports: Hard of Hearing, Other (See Below) Other HEENT History: reading glasses, top denture, rt hearing aid Cardiovascular History: Reports: Afib (patient denies), High Cholesterol, Hypertension Respiratory History: Reports: COPD, Sleep Apnea, SOB (can't walk 2 blocks without SOB) Other Respiratory History: uses CPAP Gastrointestinal History: Reports: Colon Polyp, Diverticulosis, Other (See Below ) Other Gastrointestinal History: recent hospitalization for diverticulitis Genitourinary History: Reports: Renal Calculus, Renal Disease Musculoskeletal History: Reports: Arthritis, Fracture Other Musculoskeletal History: hx fx wrist Neurological History: Reports: None Psychiatric History: Reports: None Endocrine/Metabolic History: Reports: Diabetes, Type II, Obesity/BMI 30+ Hematologic History: Reports: None Immunologic History: Reports: None Oncologic (Cancer) History: Reports: None Dermatologic History: Reports: None - Infectious Disease History Infectious Disease History: Reports: Chicken Pox, Measles, Mumps - Past Surgical History Head Surgeries/Procedures: Reports: None HEENT Surgical History: Reports: Cataract Surgery, Other (See Below) (left inner ear surgery) GI Surgical History: Reports: Appendectomy, Cholecystectomy, Colonoscopy - SUBSTANCE USE Smoking Status *Q: Former Smoker (quit more than 10 years ago) Tobacco Use Within Last Twelve Months: No Recreational Drug Use History: No - HOME MEDS Home Medications: Home Meds Carvedilol [Coreg] 6.25 mg PO BID 12/19/13 [History] Diltiazem HCl [Diltiazem 24Hr ER] 180 mg PO DAILY 12/19/13 [History] Lisinopril [Prinivil] 10 mg PO DAILY 12/19/13 [History] atorvaSTATin [Lipitor] 20 mg PO BEDTIME 12/19/13 [History] Albuterol [Ventolin HFA] 2 puff INH Q4H PRN 05/31/18 [History] Cholecalciferol (Vitamin D3) [Vitamin D3] 1 cap PO DAILY 05/31/18 [History] Fluticasone/Salmeterol [Advair 250-50 Diskus] 1 puff INH BID 05/31/18 [History] Methylsulfonylmethane [MSM] 1,200 mg PO DAILY 05/31/18 [History] Saw/Vit E/Sod Mechelle/Lyc/Beta/Pyg [Prostate Health Caplet] 2 tab PO DAILY 05/31/18 [History] Sodium Bicarbonate 650 mg PO BID 05/31/18 [History] hydroCHLOROthiazide [Hydrochlorothiazide] 25 mg PO DAILY 05/31/18 [History] Sulfamethoxazole/Trimethoprim [Bactrim 400-80 MG] 1 each PO BID #12 tablet 06/05 [Rx] Tamsulosin [Flomax] 0.4 mg PO PCBREAKFAST #30 cap.er 06/05/18 [Rx] Albuterol/Ipratropium [DuoNeb 3.0-0.5 MG/3 ML] 1 inh NEB ASDIRECTED PRN [History] - CURRENT (IN HOUSE) MEDS Current Meds: Current Medications Lactated Ringer's (Ringers, Lactated) 1,000 mls @ 100 mls/hr IV ASDIRECTED GABI Last Admin: 06/16/18 08:39 Dose: 100 mls/hr Sodium Chloride (Saline Flush) 10 ml FLUSH ASDIRECTED PRN PRN Reason: Keep Vein Open Sodium Chloride (Saline Flush) 2.5 ml FLUSH ASDIRECTED PRN PRN Reason: Keep Vein Open Discontinued Medications Tobramycin 120 mg/ Sodium (Chloride) 103 mls @ 206 mls/hr IV ONCALL ONE Stop: 06/16/18 00:30
[2018-06-16] MEDS ORDERED: Iopamidol 408 MG/ML 50 ML SDV ONE (09:09)
[2018-06-16] MEDS ORDERED: Dexamethasone 4 MG/ML 5 ML MDV ONE (09:20)
[2018-06-16] MEDS ORDERED: Ondansetron 4 MG/2 ML SDV ONE (09:20)
[2018-06-16] MEDS ORDERED: Ketorolac 30 MG/ML SDV ONE (09:20)
[2018-06-16] MEDS ORDERED: Midazolam 1 MG/ML 2 ML SDV ONE (09:20)
[2018-06-16] MEDS ORDERED: Lidocaine 2% 5 ML SDV ONE (09:20)
--- NOTE | 2018-06-16 10:55 | OR ---
SURGEON: Kaylynn Fowler M.D. DATE OF PROCEDURE: 06/16/2018 PREOPERATIVE DIAGNOSIS: Left lower ureteral stone. POSTOPERATIVE DIAGNOSIS: Left lower ureteral stone, stone passed. OPERATION: Cystoscopy for removal of bladder stone and left ureteroscopy. DESCRIPTION OF THE PROCEDURE: The patient was given spinal anesthesia, he was placed in dorsal lithotomy position, prepped and draped in sterile drapes. 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 The 22-Cymraes cystoscope went through that without difficulty. The inside of the bladder showed 2 to 3+ trabeculations, partially obstructive prostate. The ureteral orifice on the left appeared slightly hemorrhagic in a circumferential fashion, which would possibly indicate that the stone has passed. He had a bladder stone that was removed, but that was there on the CT scan before along with the ureteral stone. The left lower ureter was then dilated using the UroMax II balloon dilator and the rigid ureteroscope was advanced in the left lower ureter up to the junction of the lower third with the middle third. No stones were identified. With that done, the procedure was terminated. The guidewire was removed. The patient was moved to recovery room in good condition. AJ / ERIC /[id number]
[2018-06-16] MEDS ORDERED: Acetaminophen/HYDROcodone 325-5 MG Tab PO ONE (12:31)
[2018-06-16] MEDS ORDERED: Acetaminophen/HYDROcodone 325-5 MG Tab ONE (12:35)
--- NOTE | 2018-06-16 13:24 | PCM48HPAN ---
Post Anesthesia Note - EVALUATION WITHIN 48HRS OF ANESTHETIC Vital Signs in Normal Range: Yes Patient Participated in Evaluation: Yes Respiratory Function Stable: Yes Airway Patent: Yes Cardiovascular Function Stable: Yes Hydration Status Stable: Yes Pain Control Satisfactory: Yes Nausea and Vomiting Control Satisfactory: Yes Mental Status Recovered: Yes Resp Rate: 12 - COMMENTS/OBSERVATIONS Free Text/Narrative:: no anesthesia problems
[2018-06-16 15:42] VITALS: BP 125/51
--- NOTE | 2018-06-16 16:44 | CR ---
EXAMINATION: Left ureteroscopy HISTORY: Left ureteroscopy COMPARISON: 06/10/2018 TECHNIQUE: Single view FINDINGS/IMPRESSION: Operative control films demonstrate wire selection of the left ureter.
== END 2018-06-16 14:40 | disposition home or self-care (01) ==
LOC: MW.SDS 07:47
PROVIDERS: ATTEND Urology
DX: N21.0 Calculus in bladder (principal); N32.89 Other specified disorders of bladder; N40.0 Benign prostatic hyperplasia without lower urinary tract symptoms; J44.9 Chronic obstructive pulmonary disease, unspecified; E11.9 Type 2 diabetes mellitus without complications; I10 Essential (primary) hypertension; G47.33 Obstructive sleep apnea (adult) (pediatric); Z87.891 Personal history of nicotine dependence; Z79.899 Other long term (current) drug therapy; Z99.89 Dependence on other enabling machines and devices; Z88.1 Allergy status to other antibiotic agents; Z88.0 Allergy status to penicillin; Z88.8 Allergy status to other drugs, medicaments and biological substances; Z91.010 Allergy to peanuts
CPT/HCPCS: 52310; 76000; A9270; C1769; J1100; J1885; J2001; J2250; J2405; J3260; J7030; J7120; Q9966; 00910; 88300